=== PATIENT | male | born 1960 | race Caucasian/White ===

== ENCOUNTER → 2018-01-17 08:17 | Outpatient (CLI) | payer BC, SELFPAY ==
[2018-01-17 08:57] LABS: Basophils # 0.1 K/mm3 (0-0.2); Basophils % 0.9 % (0.1-2.0); Eosinophils # 0.4 K/mm3 (0.0-0.4); Eosinophils % 4.5 % (0.1-12.0); Hematocrit 51.8 % (42.0-52.0); Hemoglobin 16.8 g/dL (14.1-18.0); Lymphocytes # 2.3 K/mm3 (0.7-4.5); Lymphocytes % 29.6 K/mm3 (10-50); Mean Corpuscular HGB Conc 32.5 g/dL (31.8-35.4); Mean Corpuscular Hemoglobin 29.7 pg (27.0-31.2); Mean Corpuscular Volume 91.2 fl (80-94); Mean Platelet Volume 9.8 fl (7.4-10.4); Monocytes # 0.6 K/mm3 (0.1-1.0); Neutrophils # 4.4 K/mm3 (1.8-7.8); Neutrophils % 56.9 % (37.0-80.0); Platelet Count 216 K/mm3 (142-424); Red Blood Count 5.67 M/mm3 (4.60-6.20); Red Cell Distribution Width 13.4 % (11.5-17.5); White Blood Count 7.6 K/mm3 (4.8-10.8)
[2018-01-17 10:20] LABS: Alanine Aminotransferase 33 U/L (12-78); Albumin Level 4.4 gm/dL (3.4-5.0); Albumin/Globulin Ratio 1.4 (1.1-1.8); Alkaline Phosphatase 100 U/L (46-116); Anion Gap 12.1 mEq/L (5-15); Aspartate Amino Transferase 31 U/L (15-37); Bilirubin,Total 0.3 mg/dL (0.2-1.0); Blood Urea Nitrogen 11 mg/dL (7-18); Calcium 9.7 mg/dL (8.5-10.1); Carbon Dioxide 30 mmol/L (21.0-32.0); Chloride 106 mmol/L (98-107); Chol/HDL Ratio 6.4 (1-3.5); Cholesterol 192 mg/dL (140-200); Creatinine,Serum 0.69 mg/dL (0.70-1.30); Estimated Glomerular Filt Rate 118 ml/min (>60); Ferritin 20 ng/mL (8-388); GFR (African American) 143 ML/MIN (>60); Globulin 3.2 gm/dl (1.3-3.2); Glucose 127 mg/dL (74-106); HDL Cholesterol 30 mg/dL (27-67); LDL Cholesterol 118 mg/dL (0-130); Potassium 4.1 mmoL/L (3.5-5.1); Sodium 144 mmol/L (136-145); Total Protein,Serum 7.6 gm/dL (6.4-8.2); Triglycerides 222 mg/dL (30-200); VLDL Cholesterol 44 mg/dL (0-40)
== END ==
PROVIDERS: Visit Provider Internal Medicine Adolescent Medicine
DX: E83.110 Hereditary hemochromatosis (principal); E78.5 Hyperlipidemia, unspecified
CPT/HCPCS: 36415; 80053; 80061; 82728; 85025

== ENCOUNTER → 2018-08-05 08:19 | Outpatient (CLI) | payer BC, SELFPAY ==
[2018-08-05 11:03] LABS: Basophils # 0.1 K/mm3 (0-0.2); Basophils % 0.6 % (0.1-2.0); Eosinophils # 0.5 K/mm3 (0.0-0.4); Eosinophils % 5.4 % (0.1-12.0); Hematocrit 48.6 % (42.0-52.0); Hemoglobin 15.8 g/dL (14.1-18.0); Lymphocytes # 2.8 K/mm3 (0.7-4.5); Lymphocytes % 31.1 % (10-50); Mean Corpuscular HGB Conc 32.6 g/dL (31.8-35.4); Mean Corpuscular Hemoglobin 29.3 pg (27.0-31.2); Mean Platelet Volume 9.9 fl (7.4-10.4); Monocytes # 0.6 K/mm3 (0.1-1.0); Monocytes % 6.9 % (1.7-9.3); Neutrophils # 5.1 K/mm3 (1.8-7.8); Neutrophils % 56.1 % (37.0-80.0); Platelet Count 243 K/mm3 (142-424); White Blood Count 9.1 K/mm3 (4.8-10.8)
[2018-08-05 11:41] LABS: Alanine Aminotransferase 32 U/L (12-78); Albumin Level 4.3 gm/dL (3.4-5.0); Albumin/Globulin Ratio 1.4 (1.1-1.8); Alkaline Phosphatase 88 U/L (46-116); Anion Gap 13.4 mEq/L (5-15); Aspartate Amino Transferase 30 U/L (15-37); Bilirubin,Total 0.4 mg/dL (0.2-1.0); Blood Urea Nitrogen 10 mg/dL (7-18); Calcium 9.8 mg/dL (8.5-10.1); Carbon Dioxide 29 mmol/L (21.0-32.0); Chloride 104 mmol/L (98-107); Chol/HDL Ratio 4.9 (1-3.5); Cholesterol 173 mg/dL (140-200); Creatinine,Serum 0.74 mg/dL (0.70-1.30); Estimated Glomerular Filt Rate 108 ml/min (>60); Ferritin 18 ng/mL (8-388); Free Thyroxine Index 2.6 ug/dL (5.93-13.13); GFR (African American) 131 ML/MIN (>60); Globulin 3.1 gm/dl (1.3-3.2); Glucose 108 mg/dL (74-106); HDL Cholesterol 35 mg/dL (27-67); LDL Cholesterol 100 mg/dL (0-130); Potassium 4.4 mmoL/L (3.5-5.1); Sodium 142 mmol/L (136-145); T4 (Thyroxine) 7.5 ug/dl (4.7-13.3); Thyroid Stimulating Hormone 1.28 uIU/ml (0.358-3.740); Total Protein,Serum 7.4 gm/dL (6.4-8.2); Triglycerides 190 mg/dL (30-200); Triiodothryronine (T3) Uptake 34 % (31-39); VLDL Cholesterol 38 mg/dL (0-40)
[2018-08-05 11:44] LABS: Hemoglobin A1C 5.9 % (0.0-7.0)
[2018-08-06 12:15] LABS: Vitamin B12 998 pg/mL (232-1245)
== END ==
PROVIDERS: PCP Internal Medicine Adolescent Medicine; Visit Provider Internal Medicine Adolescent Medicine
DX: E78.5 Hyperlipidemia, unspecified (principal); G60.9 Hereditary and idiopathic neuropathy, unspecified; E83.110 Hereditary hemochromatosis
CPT/HCPCS: 36415; 80053; 80061; 82607; 82728; 83036; 84436; 84443; 84479; 85025

== ENCOUNTER → 2019-02-06 07:49 | Outpatient (CLI) | payer BC, SELFPAY ==
[2019-02-06 08:26] LABS: Basophils # 0.1 K/mm3 (0-0.2); Basophils % 0.8 % (0.1-2.0); Eosinophils # 0.4 K/mm3 (0.0-0.4); Eosinophils % 4.3 % (0.1-12.0); Hematocrit 46.7 % (42.0-52.0); Hemoglobin 15.8 g/dL (14.1-18.0); Lymphocytes # 2.7 K/mm3 (0.7-4.5); Lymphocytes % 32.8 % (10-50); Mean Corpuscular HGB Conc 33.8 g/dL (31.8-35.4); Mean Corpuscular Hemoglobin 30.9 pg (27.0-31.2); Mean Corpuscular Volume 91.4 fl (80-94); Mean Platelet Volume 8.9 fl (7.4-10.4); Monocytes # 0.5 K/mm3 (0.1-1.0); Monocytes % 6.6 % (1.7-9.3); Neutrophils # 4.5 K/mm3 (1.8-7.8); Neutrophils % 55.4 % (37.0-80.0); Platelet Count 206 K/mm3 (142-424); Red Blood Count 5.11 M/mm3 (4.60-6.20); Red Cell Distribution Width 14.4 % (11.5-17.5); White Blood Count 8.1 K/mm3 (4.8-10.8)
[2019-02-06 09:25] LABS: Hemoglobin A1C 5.9 % (0.0-7.0)
[2019-02-06 09:29] LABS: Alanine Aminotransferase 31 U/L (12-78); Albumin/Globulin Ratio 1.3 (1.1-1.8); Alkaline Phosphatase 79 U/L (46-116); Anion Gap 12.1 mEq/L (5-15); Aspartate Amino Transferase 25 U/L (15-37); Bilirubin,Total 0.4 mg/dL (0.2-1.0); Blood Urea Nitrogen 10 mg/dL (7-18); Calcium 9.3 mg/dL (8.5-10.1); Carbon Dioxide 30 mmol/L (21.0-32.0); Chloride 107 mmol/L (98-107); Chol/HDL Ratio 5.5 (1-3.5); Cholesterol 165 mg/dL (140-200); Creatinine,Serum 0.72 mg/dL (0.70-1.30); Estimated Glomerular Filt Rate 112 ml/min (>60); Ferritin 14 ng/mL (8-388); Free Thyroxine Index 2.2 ug/dL (5.93-13.13); GFR (African American) 135 ML/MIN (>60); Globulin 3.2 gm/dl (1.3-3.2); Glucose 105 mg/dL (74-106); HDL Cholesterol 30 mg/dL (27-67); LDL Cholesterol 110 mg/dL (0-130); Potassium 4.1 mmoL/L (3.5-5.1); Sodium 145 mmol/L (136-145); T4 (Thyroxine) 6.6 ug/dl (4.7-13.3); Thyroid Stimulating Hormone 1.65 uIU/ml (0.358-3.740); Total Protein,Serum 7.2 gm/dL (6.4-8.2); Triglycerides 125 mg/dL (30-200); Triiodothryronine (T3) Uptake 34 % (31-39); VLDL Cholesterol 25 mg/dL (0-40)
[2019-02-07 14:31] LABS: Vitamin B12 1530 pg/mL (232-1245)
== END ==
PROVIDERS: Visit Provider Internal Medicine Adolescent Medicine
DX: I10 Essential (primary) hypertension (principal); E83.110 Hereditary hemochromatosis; G60.9 Hereditary and idiopathic neuropathy, unspecified
CPT/HCPCS: 36415; 80053; 80061; 82607; 82728; 83036; 84436; 84443; 84479; 85025

== ENCOUNTER → 2019-08-14 07:40 | Outpatient (CLI) | payer BC, SELFPAY ==
[2019-08-14 08:05] LABS: Basophils # 0.1 K/mm3 (0-0.2); Basophils % 0.8 % (0.1-2.0); Eosinophils # 0.3 K/mm3 (0.0-0.4); Eosinophils % 3.8 % (0.1-12.0); Hematocrit 49.6 % (42.0-52.0); Hemoglobin 16.1 g/dL (14.1-18.0); Lymphocytes # 2.5 K/mm3 (0.7-4.5); Lymphocytes % 29.7 % (10-50); Mean Corpuscular HGB Conc 32.5 g/dL (31.8-35.4); Mean Corpuscular Hemoglobin 31.1 pg (27.0-31.2); Mean Corpuscular Volume 95.8 fl (80-94); Mean Platelet Volume 9.6 fl (7.4-10.4); Monocytes # 0.5 K/mm3 (0.1-1.0); Monocytes % 6.4 % (1.7-9.3); Neutrophils % 59.3 % (37.0-80.0); Platelet Count 202 K/mm3 (142-424); Red Blood Count 5.18 M/mm3 (4.60-6.20); Red Cell Distribution Width 14.1 % (11.5-17.5); White Blood Count 8.4 K/mm3 (4.8-10.8)
[2019-08-14 10:26] LABS: Alanine Aminotransferase 27 U/L (12-78); Albumin/Globulin Ratio 1.4 (1.1-1.8); Alkaline Phosphatase 73 U/L (46-116); Anion Gap 12.7 mEq/L (5-15); Aspartate Amino Transferase 24 U/L (15-37); Bilirubin,Total 0.4 mg/dL (0.2-1.0); Blood Urea Nitrogen 16 mg/dL (7-18); Calcium 9.2 mg/dL (8.5-10.1); Carbon Dioxide 28 mmol/L (21.0-32.0); Chloride 106 mmol/L (98-107); Chol/HDL Ratio 7.2 (1-3.5); Cholesterol 236 mg/dL (140-200); Creatinine,Serum 0.75 mg/dL (0.70-1.30); Estimated Glomerular Filt Rate 106 ml/min (>60); Ferritin 21 ng/mL (8-388); GFR (African American) 129 ML/MIN (>60); Globulin 2.9 gm/dl (1.3-3.2); Glucose 106 mg/dL (74-106); HDL Cholesterol 33 mg/dL (27-67); LDL Cholesterol 164 mg/dL (0-130); Potassium 3.7 mmoL/L (3.5-5.1); Sodium 143 mmol/L (136-145); Total Protein,Serum 6.9 gm/dL (6.4-8.2); Triglycerides 195 mg/dL (30-200); VLDL Cholesterol 39 mg/dL (0-40)
[2019-08-14 10:36] LABS: Hemoglobin A1C 5.8 % (0.0-7.0)
[2019-08-15 15:01] LABS: Vitamin B12 1334 pg/mL (232-1245)
== END ==
PROVIDERS: Visit Provider Internal Medicine Adolescent Medicine
DX: E78.5 Hyperlipidemia, unspecified (principal); E83.110 Hereditary hemochromatosis; G60.9 Hereditary and idiopathic neuropathy, unspecified
CPT/HCPCS: 36415; 80053; 80061; 82607; 82652; 82728; 83036; 85025

== ENCOUNTER → 2020-02-07 07:56 | Outpatient (CLI) | payer BC, SELFPAY ==
[2020-02-07 08:16] LABS: Basophils # 0.1 K/mm3 (0-0.2); Basophils % 0.7 % (0.1-2.0); Eosinophils # 0.3 K/mm3 (0.0-0.4); Eosinophils % 4.3 % (0.1-12.0); Hematocrit 48.9 % (42.0-52.0); Hemoglobin 16.3 g/dL (14.1-18.0); Lymphocytes # 2.1 K/mm3 (0.7-4.5); Lymphocytes % 27.4 % (10-50); Mean Corpuscular HGB Conc 33.4 g/dL (31.8-35.4); Mean Corpuscular Hemoglobin 30.7 pg (27.0-31.2); Mean Corpuscular Volume 91.9 fl (80-94); Mean Platelet Volume 9.2 fl (7.4-10.4); Monocytes # 0.6 K/mm3 (0.1-1.0); Monocytes % 8.1 % (1.7-9.3); Neutrophils # 4.7 K/mm3 (1.8-7.8); Neutrophils % 59.7 % (37.0-80.0); Platelet Count 175 K/mm3 (142-424); Red Blood Count 5.32 M/mm3 (4.60-6.20); Red Cell Distribution Width 14.3 % (11.5-17.5); White Blood Count 7.8 K/mm3 (4.8-10.8)
[2020-02-07 09:05] LABS: Chloride 103 mmol/L (98-107); Sodium 139 mmol/L (136-145)
[2020-02-07 09:08] LABS: Alanine Aminotransferase 27 U/L (12-78); Albumin Level 4.3 g/dl (3.5-5.0); Alkaline Phosphatase 62 U/L (38-126); Aspartate Amino Transferase 36 U/L (17-59); Bilirubin,Total 0.5 mg/dl (0.2-1.3); Blood Urea Nitrogen 13 mg/dl (9-20); Carbon Dioxide 30 mmol/L (22.0-30.0); Estimated Glomerular Filt Rate 115 ml/min (>60); GFR (African American) 139 ML/MIN (>60)
[2020-02-07 09:09] LABS: Albumin/Globulin Ratio 1.6 (1.1-1.8); Calcium 10.1 mg/dl (8.4-10.2); Chol/HDL Ratio 5.9 (1-3.5); Cholesterol 211 mg/dl (140-200); Globulin 2.7 g/dL (1.3-3.2); Glucose 121 mg/dl (74-100); HDL Cholesterol 36 mg/dl (40-60); Triglycerides 211 mg/dl (30-150); VLDL Cholesterol 42 mg/dL (0-40)
[2020-02-07 09:20] LABS: Direct LDL Cholesterol 159.52 mg/dL (100-129)
[2020-02-07 09:44] LABS: Ferritin 14.8 ng/ml (17.9-464)
[2020-02-07 10:26] LABS: Hemoglobin A1C 5.6 % (4.0-6.0)
== END ==
PROVIDERS: Visit Provider Internal Medicine Adolescent Medicine
DX: E78.5 Hyperlipidemia, unspecified (principal); E83.110 Hereditary hemochromatosis; I10 Essential (primary) hypertension; G60.9 Hereditary and idiopathic neuropathy, unspecified
CPT/HCPCS: 36415; 80053; 80061; 82728; 83036; 85025

== ENCOUNTER → 2020-03-12 10:30 | Outpatient (POV) | payer BC, SELFPAY | PROVIDERS: PCP Internal Medicine Adolescent Medicine; Visit Provider Physician Assistant | DX: Z00.00 Encounter for general adult medical examination without abnormal findings (principal) ==

== ENCOUNTER 2020-07-14 09:16 | Emergency (ER) | payer BC, SELFPAY ==
[2020-07-14 09:29] VITALS: BP 149/96; PULSE 86; RESP 19; TEMP 36.6; O2SAT 99; BMI 29.0
--- NOTE | 2020-07-14 09:43 | HMH.EDUTC ---
[facility] [place] Disposition Clinical Impression: Bronchitis Sinusitis Qualifiers: Sinusitis location: unspecified location Chronicity: unspecified Qualified Code(s): J32.9 - Chronic sinusitis, unspecified Disposition: Home, Self-Care Condition on Discharge: Good Instructions: Sinusitis, Sinus Headache, DI for Sinusitis, Acute Bronchitis Additional Instructions: ? Start antibiotic today. Be sure to complete entire prescription even if feeling better ? Monitor temp. Tylenol every 4 hours as needed and / or ibuprofen every 6 hours as needed ( As long as your primary care physician has told you that it ok to take both. For fever/aches/pains ER if no less than 101 despite Tylenol or Motrin ? Humidifier/vaporizer or hot steamy shower ? Inhaler every 4-6 hours as needed like we discussed. If unsure how to use it, ask pharmacist to demonstrate how. Should help open airways and improve cough, wheezing, and shortness of breath ? Start steroid today. Helps with inflammation therefore, cough and wheezing. Follow directions on the package. Reviewed side effects. Patient reports taking them before. Follow up IMMEDIATELY for new or worsening of symptoms OR no noticeable improvement over the next 48-72 hours. 911 immediately for any life threatening symptoms such as chest pain or difficulty breathing You was tested for today for COVID19 your test result should be tomorrow or Wednesday, you may call back tomorrow or Wednesday to see if your test results are back and the result You was given a handout with instructions for Self Quarantine and Self isolation for while you wait on test results and what to do if they are positive Prescriptions: methylPREDNISolone [Medrol 4mg tab] 4 mg PO DIRECTED #21 tab Transmission Status: Pending to [id number] Azithromycin [Z-Orion 250mg Tab] 250 mg PO DIRECTED #6 tab Transmission Status: Pending to [id number] Referrals: Fabián Burgess MD [Primary Care Provider] - As needed Forms: Work/School Release Time of Disposition: 09:56 Medical Decision Making - Usama Inquiry Pt receiving controlled substance: No Usama was queried for this patient: No Vital Signs: 07/14/20 09:29 Temperature 97.9 F Temperature Source Oral Pulse Rate [Radial] 86 Respiratory Rate 19 Blood Pressure [Right Arm] 149/96 H Blood Pressure Mean [Right Arm] 113 Blood Pressure Source [Right Arm] Automatic Cuff Blood Pressure Position [Right Arm] Sitting 02 Sat by Pulse Oximetry 99 Oxygen Delivery Method Room Air Orders (Tests/Meds): ORDERS Category Date Time Status Covid-19 Nasal PCR Sendout [facility] 07/14/20 09:40 Received Medical Decision Narrative: Patient states that he has taken zpack and steriods before without complications or reactions [facility] HPI - General Stated complaint: cold work exposed Time Seen by Provider: 07/14/20 09:43 Mode of Arrival: Ambulatory Source of Information: Patient Limitations: No Limitations Description of Symptoms (Recalled from Triage Doc. by RN): cough, sneezing, congestion since yesterday HEENT Symptoms (Recalled from RN notes): Yes Resp Symptoms (Recalled from RN notes): No Skin Symptoms (Recalled from RN notes): No MS Symptoms (Recalled from RN notes): No Functional Status (Recalled from RN notes): wnl - History of Present Illness Provider Complaint: Patient states that he has been having sinus issues for over a week State that yesterday it felt like it was trying to move into his chest States that he started having drainage in the back of his throat throat irritation, coughing and sneezing States that he is an everyday smoker and gets bronchitis around this time every year and has to get antibiotics States that he was going to see his PCP last week before it got bad but couldnt get in - Related Data Home Medications Medication Instructions Recorded Confirmed albuterol sulfate 90 mcg/actuation INHALATION 30 Days #8 g 06/20/18 aerosol inhaler alprazolam
[2020-07-14 10:08] VITALS: BP 149/96; PULSE 86; RESP 19; TEMP 36.6; O2SAT 99
[2020-07-15 16:35] LABS: Covid-19 Nasal PCR Sendout UK Not Detected
== END 2020-07-14 10:09 | disposition home or self-care (01) ==
PROVIDERS: Emergency Provider Nurse Practitioner; PCP Internal Medicine Adolescent Medicine
DX: Z20.828 Contact with and (suspected) exposure to other viral communicable diseases (principal); J20.9 Acute bronchitis, unspecified; J32.9 Chronic sinusitis, unspecified; F17.210 Nicotine dependence, cigarettes, uncomplicated
CPT/HCPCS: 99201; U0003

== ENCOUNTER → 2020-10-16 13:03 | Outpatient (POV) | payer BC, SELFPAY | DX: Z00.00 Encounter for general adult medical examination without abnormal findings (principal) ==

== ENCOUNTER → 2020-12-12 07:56 | Outpatient (CLI) | payer BC, SELFPAY ==
[2020-12-12 09:01] LABS: Basophils # 0.1 K/mm3 (0-0.2); Basophils % 0.8 % (0.1-2.0); Eosinophils # 0.4 K/mm3 (0.0-0.4); Eosinophils % 4.7 % (0.1-12.0); Hematocrit 50.1 % (42.0-52.0); Hemoglobin 17.1 g/dL (14.1-18.0); Lymphocytes # 2.9 K/mm3 (0.7-4.5); Lymphocytes % 29.8 % (10-50); Mean Corpuscular HGB Conc 34.2 g/dL (31.8-35.4); Mean Corpuscular Hemoglobin 31.6 pg (27.0-31.2); Mean Corpuscular Volume 92.4 fl (80-94); Mean Platelet Volume 9.8 fl (7.4-10.4); Monocytes # 0.6 K/mm3 (0.1-1.0); Neutrophils # 5.6 K/mm3 (1.8-7.8); Neutrophils % 58.8 % (37.0-80.0); Platelet Count 168 K/mm3 (142-424); Red Blood Count 5.42 M/mm3 (4.60-6.20); Red Cell Distribution Width 13.4 % (11.5-17.5); White Blood Count 9.6 K/mm3 (4.8-10.8)
[2020-12-12 09:16] LABS: Alanine Aminotransferase 35 U/L (12-78); Albumin Level 4.5 g/dl (3.5-5.0); Albumin/Globulin Ratio 1.8 (1.1-1.8); Alkaline Phosphatase 94 U/L (38-126); Aspartate Amino Transferase 40 U/L (17-59); Bilirubin,Total 0.8 mg/dl (0.2-1.3); Blood Urea Nitrogen 14 mg/dl (9-20); Calcium 10.2 mg/dl (8.4-10.2); Carbon Dioxide 28 mmol/L (22.0-30.0); Chloride 105 mmol/L (98-107); Chol/HDL Ratio 5.9 (1-3.5); Cholesterol 171 mg/dl (140-200); Estimated Glomerular Filt Rate 137 ml/min (>60); GFR (African American) 166 ML/MIN (>60); Globulin 2.5 g/dL (1.3-3.2); Glucose 127 mg/dl (74-100); HDL Cholesterol 29 mg/dl (40-60); Magnesium 1.9 mg/dl (1.6-2.3); Sodium 140 mmol/L (136-145); Triglycerides 252 mg/dl (30-150); VLDL Cholesterol 50 mg/dL (0-40)
[2020-12-12 09:19] LABS: Hemoglobin A1C 6.4 % (4.0-6.0)
[2020-12-12 09:27] LABS: Direct LDL Cholesterol 96.19 mg/dL (100-129)
[2020-12-12 09:46] LABS: Prostate Specific Ag Screen 1.8 ng/ml (0.0-4.0); Thyroid Stimulating Hormone 1.19 uIU/mL (0.465-4.68)
[2020-12-12 09:50] LABS: Ferritin 34.1 ng/ml (17.9-464)
[2020-12-12 10:04] LABS: Vitamin B12 726 pg/mL (239-931)
[2020-12-12 12:19] LABS: Erythrocyte Sedimentation Rate 5 mm/hr (0-20)
== END ==
PROVIDERS: Visit Provider Internal Medicine Adolescent Medicine
DX: M94.1 Relapsing polychondritis (principal); G60.9 Hereditary and idiopathic neuropathy, unspecified; G25.81 Restless legs syndrome; E83.110 Hereditary hemochromatosis; E78.5 Hyperlipidemia, unspecified
CPT/HCPCS: 36415; 80053; 80061; 82607; 82728; 83036; 83735; 84443; 85025; 85651; G0103

== ENCOUNTER 2021-01-31 16:08 | Emergency (ER) | payer BC, SELFPAY ==
[2021-01-31 16:40] VITALS: BP 140/74; PULSE 64; RESP 19; TEMP 36.6; O2SAT 97; BMI 29.0
--- NOTE | 2021-01-31 16:59 | HMH.EDUTC ---
[facility] [place] Disposition Clinical Impression: Pre-op testing Disposition: Home, Self-Care Condition on Discharge: Good Instructions: Preventing the Spread of Coronavirus Discharge Instructions Referrals: Fabián Burgess MD [Primary Care Provider] - Time of Disposition: 17:00 Medical Decision Making - Usama Inquiry Pt receiving controlled substance: No Vital Signs: 01/31/21 16:40 Temperature 97.9 F Temperature Source Oral Pulse Rate [Right Brachial] 64 Respiratory Rate 19 Blood Pressure [Right Arm] 140/74 Blood Pressure Mean [Right Arm] 96 Blood Pressure Source [Right Arm] Automatic Cuff Blood Pressure Position [Right Arm] Sitting 02 Sat by Pulse Oximetry 97 Oxygen Delivery Method Room Air Orders (Tests/Meds): ORDERS Category Date Time Status Covid-19 Nasal PCR ([facility]) Routine Lab 01/31/21 16:45 Received [facility] [place] HPI - General Stated complaint: Covid Swab for procedure 02/03 Time Seen by Provider: 01/31/21 16:59 Mode of Arrival: Ambulatory Source of Information: Patient Limitations: No Limitations Description of Symptoms (Recalled from Triage Doc. by RN): PATIENT NEEDING COVID TEST FOR PROCEDURE HEENT Symptoms (Recalled from RN notes): No Resp Symptoms (Recalled from RN notes): No Skin Symptoms (Recalled from RN notes): No MS Symptoms (Recalled from RN notes): No Functional Status (Recalled from RN notes): WNL - History of Present Illness Provider Complaint: Patient needs COVID19 swab before procedure on Wednesday. No symptoms. Relieving factors: none Exacerbating factors: none Associated symptoms: denies other symptoms Treatments prior to arrival: none - Related Data Home Medications Medication Instructions Recorded Confirmed albuterol sulfate 90 mcg/actuation 90 mcg INHALATION DAILY 30 Days #8 06/20/18 01/28/21 aerosol inhaler g alprazolam 0.5 mg tablet 0.5 mg PO DAILY 30 Days #60 tab 06/20/18 01/28/21 bisoprolol 5 5 mg PO DAILY 30 Days #30 tab 06/20/18 01/28/21 mg-hydrochlorothiazide 6.25 mg tablet dorzolamide 22.3 mg-timolol 6.8 22.3 ml OPHTHALMIC DAILY 30 Days 06/20/18 01/28/21 mg/mL eye drops #10 ml gabapentin 300 mg capsule 300 mg PO DAILY 30 Days #90 cap 06/20/18 01/28/21 latanoprost 0.005 % eye drops 0.005 % OPHTHALMIC DAILY 30 Days 06/20/18 01/28/21 #2 ml simvastatin 40 mg tablet 40 mg PO DAILY 30 Days #30 tab 06/20/18 01/28/21 temazepam 30 mg capsule 30 mg PO DAILY 30 Days #30 cap 06/20/18 01/28/21 Allergies Allergy/AdvReac Type Severity Reaction Status Date / Time Penicillins [PENICILLINS] Allergy Unknown BOTTOM FT Verified 06/20/18 13:14 SWELL - Worker's Comp Is this a Worker's Comp case?: No [facility] History - Hepatitis A Screen Drug use history?: No High risk sexual behaviors?: No History of sexually transmitted infection?: No Currently employed?: No Childcare worker?: No Do you have indoor plumbing?: Yes Do you have electricity?: Yes Attestation statement:: This patient has been screened for Hepatitis A risk factors. I have reviewed the patient's past medical history: Yes Medical History: Reports:: Anxiety, Depression, Hyperlipidemia, Hypertension Denies:: Cancer, Diabetes Mellitus Type 1, Diabetes Mellitus Type 2, Internal Pacemaker, MRSA Other Surgeries: Yes: Other. No: Pacemaker Amputation: No Comment: josué cataract - Social History Smoking Status: Current every day smoker Tobacco Type: cigarettes # Packs/Day (cigarettes): 1 Alcohol Intake: never Substance Use Type: denies use Occupational Status: employed Housing: house Household Members: spouse - Psychiatric History Pschychiatric History:: Reports:: Anxiety, Depression Family Hx:: No significant family history ROS Obtained: Yes All systems reviewed & no additional complaints Physical Exam - General General appearance: alert, in no apparent distress - Head Head exam: normocephalic - Eye Eye exam: Present: PERRL - Chest Chest inspection: Present: symmetric chest
[2021-01-31 17:02] VITALS: BP 140/74; PULSE 64; RESP 16; TEMP 36.6; O2SAT 97
== END 2021-01-31 17:06 | disposition home or self-care (01) ==
PROVIDERS: Emergency Provider Physician Assistant; PCP Internal Medicine Adolescent Medicine
DX: Z11.52 Encounter for screening for COVID-19 (principal)
CPT/HCPCS: 99202; G0463; U0003

== ENCOUNTER 2021-02-03 08:16 | Day surgery (SDC) | payer BC, SELFPAY ==
[2021-01-28 14:03] VITALS: BMI 29.0
[2021-02-03] VITALS (7 sets, daily range): BP systolic 110–126; BP diastolic 66–87; PULSE 50–63; RESP 18–20; TEMP 36.4; O2SAT 93–98
--- NOTE | 2021-02-03 09:33 | P.PN_ITS ---
[facility] Anesthesia Checklist - Patient Identification Patient Identification: Arm Band - Structural Data Admitted From: Home Planned Operative Procedure/s: Colonoscopy Consent for Planned Operative Procedure(s) Verified: Yes - NPO Status Verified Time NPO: 00:00 - Airway Assessment C-Spine Mobility Assessed: Yes TMJ Mobility Assessed: Yes Dentition: Good Dentition - Neurological Assessment Level of Consciousness: Awake, Alert Hx Seizures: No Numbness or tingling in extremities: No - Anesthesia Plan Anesthesia Risk discussed: Yes Anesthesia Plan: Verified ASA Class: III Anesthesia Type: MAC [facility] History I have reviewed the patient's past medical history: Yes Medical History: Reports:: Anxiety, Depression, Hyperlipidemia, Hypertension Denies:: Cancer, Diabetes Mellitus Type 1, Diabetes Mellitus Type 2, Internal Pacemaker, MRSA, Seizures *Have you ever received a pneumonia vaccine?: Yes *Have you received a flu vaccine this season?: Yes Anesthesia experience/problems:: None Laterality Cases: Bilateral: Cataract Other Surgeries: Yes: Other. No: Pacemaker Amputation: No - *Social History Smoking Status: Current every day smoker Tobacco Type: cigarettes # Packs/Day (cigarettes): 1 Alcohol Intake: never Substance Use Type: denies use *Occupational Status:: employed Housing: house Household Members: spouse *Travel in the last 8 weeks: None - Psychiatric History Pschychiatric History:: Reports:: Anxiety, Depression Family Hx:: No significant family history
--- NOTE | 2021-02-03 10:02 | HMH.PROC ---
[facility] [place] Procedure Note Procedure Note:: Colonoscopy Procedure Report: Colonoscopy with cold snare polypectomy Endoscopist: Milton Marshall II, MD Referring physician: Fabián Burgess M.D. Date of Procedure: February 03, 2021 Equipment: Olympus 190 variable stiffness pediatric colonoscope Sedation: MAC sedation Indication: Mr. Contreras is a 60-year-old gentleman who is here for follow-up screening/surveillance colonoscopy secondary to a personal history of colon polyps. The patient did have a colonoscopy and December 2015 (Tariq Acosta MD) and had 6 colon polyps (small tubular adenomas x3, small serrated adenoma x1 and hyperplastic polyps x2) removed. The patient does state that his paternal grandfather had colon cancer around the age of 90. He reports no abdominal pain, weight loss, change in his bowel habits or rectal bleeding. Procedure: Prior to the procedure, a history and physical exam was performed, and patient's medications and allergies were reviewed. The risks, benefits and alternatives of the sedation and procedure were discussed with the patient. All questions were answered and informed consent was obtained. The patient was brought to the procedure room. Patient identification and proposed procedure were verified by the physician and the nurse. The patient was placed in a left lateral decubitus position and the scope was passed under direct vision. Throughout the procedure, the patient's blood pressure, pulse, and oxygen saturations were monitored continuously. The colonoscopy was accomplished without difficulty. The patient tolerated the procedure well. Findings: On digital rectal examination there was normal rectal tone. There were no external hemorrhoids. The prostate was 2+, smooth, soft, symmetric without nodules. The colonoscope was introduced through the anal canal to the rectum and advanced to the cecum. The ileocecal valve and appendiceal orifice were identified. The scope was advanced a short distance into the ileum which appeared grossly normal. The scope was then withdrawn into the colon. The cecum, ascending and transverse colon and mucosa were grossly normal. There were 5 colon polyps (transverse x4 (3, 4, 4 and 5 mm) and sigmoid x1 (4 mm)) which were all removed via cold snare polypectomy. There were scattered diverticuli throughout the descending and sigmoid colon (LEFT colon). The rectum itself was normal. Upon retroflexion within the rectum there were grade 2 internal hemorrhoids. The preparation was excellent throughout with [place] Preparation Score of 9. The cecal time was 12 minutes. Impression: 1. Diminutive colonic polyps x5 2. Left-sided diverticulosis 3. Grade 2 internal hemorrhoids Plan: I will follow up the polyp pathology and recommend repeat colonoscopy again in 5 years based upon the polyp histology and prior adenomatous polyps. I would encourage bulking fiber supplementation on a long-term daily maintenance basis.
== END 2021-02-03 10:53 | disposition home or self-care (01) ==
LOC: OUTP 08:18
PROVIDERS: PCP Internal Medicine Adolescent Medicine; Visit Provider Internal Medicine Gastroenterology
PROC: 0DJD8ZZ Inspection of Lower Intestinal Tract, Via Natural or Artificial Opening Endoscopic (ICD-10-PCS; CPT 45378; principal; 2021-02-03 09:30)
DX: Z12.11 Encounter for screening for malignant neoplasm of colon (principal); Z86.010 Personal history of colon polyps; K63.5 Polyp of colon; K57.30 Diverticulosis of large intestine without perforation or abscess without bleeding; K64.1 Second degree hemorrhoids; F41.9 Anxiety disorder, unspecified; F32.9 Major depressive disorder, single episode, unspecified; E87.5 Hyperkalemia; I10 Essential (primary) hypertension; Z72.0 Tobacco use; Z79.51 Long term (current) use of inhaled steroids; Z79.899 Other long term (current) drug therapy
CPT/HCPCS: 45385

== ENCOUNTER → 2021-07-21 08:00 | Outpatient (CLI) | payer BC, SELFPAY ==
[2021-07-21 08:18] LABS: Basophils # 0.2 K/mm3 (0-0.2); Basophils % 2.3 % (0.1-2.0); Eosinophils # 0.4 K/mm3 (0.0-0.4); Eosinophils % 4.5 % (0.1-12.0); Hematocrit 49.5 % (42.0-52.0); Hemoglobin 16.6 g/dL (14.1-18.0); Lymphocytes # 2.6 K/mm3 (0.7-4.5); Lymphocytes % 30.5 % (10-50); Mean Corpuscular HGB Conc 33.6 g/dL (31.8-35.4); Mean Corpuscular Hemoglobin 31.9 pg (27.0-31.2); Mean Corpuscular Volume 94.9 fl (80-94); Mean Platelet Volume 9.7 fl (7.4-10.4); Monocytes # 0.6 K/mm3 (0.1-1.0); Monocytes % 6.6 % (1.7-9.3); Neutrophils # 4.7 K/mm3 (1.8-7.8); Platelet Count 191 K/mm3 (142-424); Red Blood Count 5.21 M/mm3 (4.60-6.20); Red Cell Distribution Width 13.6 % (11.5-17.5); White Blood Count 8.5 K/mm3 (4.8-10.8)
[2021-07-21 08:27] LABS: Hemoglobin A1C 6.1 % (4.0-6.0)
[2021-07-21 08:42] LABS: Chloride 106 mmol/L (98-107); Potassium 3.9 mmoL/L (3.5-5.1); Sodium 141 mmol/L (136-145)
[2021-07-21 08:45] LABS: Alanine Aminotransferase 32 U/L (12-78); Albumin Level 4.1 g/dl (3.5-5.0); Albumin/Globulin Ratio 1.7 (1.1-1.8); Alkaline Phosphatase 86 U/L (38-126); Anion Gap 11.9 mEq/L (5-15); Aspartate Amino Transferase 38 U/L (17-59); Bilirubin,Total 0.4 mg/dl (0.2-1.3); Blood Urea Nitrogen 12 mg/dl (9-20); Carbon Dioxide 27 mmol/L (22.0-30.0); Cholesterol 160 mg/dl (140-200); Estimated Glomerular Filt Rate 137 ml/min (>60); GFR (African American) 166 ML/MIN (>60); Globulin 2.4 g/dL (1.3-3.2); Total Protein,Serum 6.5 g/dl (6.3-8.2); Triglycerides 206 mg/dl (30-150); VLDL Cholesterol 41 mg/dL (0-40)
[2021-07-21 08:46] LABS: Calcium 9.7 mg/dl (8.4-10.2); Glucose 130 mg/dl (74-100); HDL Cholesterol 32 mg/dl (40-60)
[2021-07-21 08:56] LABS: Direct LDL Cholesterol 85.08 mg/dL (100-129)
[2021-07-21 09:19] LABS: Ferritin 14.8 ng/ml (17.9-464)
[2021-07-21 09:22] LABS: 25-OH Vitamin D, Total 54.7 ng/mL (30-100)
[2021-07-21 12:10] LABS: Vitamin B12 867 pg/mL (239-931)
== END ==
PROVIDERS: Visit Provider Internal Medicine Adolescent Medicine
DX: E83.110 Hereditary hemochromatosis (principal); E78.5 Hyperlipidemia, unspecified; M94.1 Relapsing polychondritis; G60.9 Hereditary and idiopathic neuropathy, unspecified
CPT/HCPCS: 36415; 80053; 80061; 82306; 82607; 82728; 83036; 85025

== ENCOUNTER → 2022-01-12 09:01 | Outpatient (CLI) | payer BC, SELFPAY ==
[2022-01-12 09:49] LABS: Basophils # 0.1 K/mm3 (0-0.2); Basophils % 1.7 % (0.1-2.0); Eosinophils # 0.4 K/mm3 (0.0-0.4); Eosinophils % 4.8 % (0.1-12.0); Hematocrit 49.3 % (42.0-52.0); Hemoglobin 16.2 g/dL (14.1-18.0); Lymphocytes # 2.5 K/mm3 (0.7-4.5); Lymphocytes % 29.6 % (10-50); Mean Corpuscular HGB Conc 32.9 g/dL (31.8-35.4); Mean Corpuscular Hemoglobin 29.6 pg (27.0-31.2); Mean Corpuscular Volume 90.2 fl (80-94); Mean Platelet Volume 10.4 fl (7.4-10.4); Monocytes # 0.5 K/mm3 (0.1-1.0); Monocytes % 5.9 % (1.7-9.3); Neutrophils # 4.9 K/mm3 (1.8-7.8); Platelet Count 189 K/mm3 (142-424); Red Blood Count 5.47 M/mm3 (4.60-6.20); Red Cell Distribution Width 14.8 % (11.5-17.5); White Blood Count 8.4 K/mm3 (4.8-10.8)
[2022-01-12 11:58] LABS: Chloride 104 mmol/L (98-107); Potassium 3.8 mmoL/L (3.5-5.1); Sodium 141 mmol/L (136-145)
[2022-01-12 12:01] LABS: Alanine Aminotransferase 34 U/L (12-78); Albumin Level 4.3 g/dl (3.5-5.0); Albumin/Globulin Ratio 1.7 (1.1-1.8); Alkaline Phosphatase 80 U/L (38-126); Anion Gap 10.8 mEq/L (5-15); Aspartate Amino Transferase 40 U/L (17-59); Bilirubin,Total 0.5 mg/dl (0.2-1.3); Blood Urea Nitrogen 11 mg/dl (9-20); Calcium 9.2 mg/dl (8.4-10.2); Carbon Dioxide 30 mmol/L (22.0-30.0); Cholesterol 162 mg/dl (140-200); Estimated Glomerular Filt Rate 114 ml/min (>60); GFR (African American) 138 ML/MIN (>60); Globulin 2.5 g/dL (1.3-3.2); Glucose 128 mg/dl (74-100); Total Protein,Serum 6.8 g/dl (6.3-8.2); Triglycerides 200 mg/dl (30-150); VLDL Cholesterol 40 mg/dL (0-40)
[2022-01-12 12:02] LABS: Chol/HDL Ratio 5.1 (1-3.5); HDL Cholesterol 32 mg/dl (40-60)
[2022-01-12 12:12] LABS: Direct LDL Cholesterol 95.03 mg/dL (100-129)
[2022-01-12 12:28] LABS: Thyroid Stimulating Hormone 2.03 uIU/mL (0.465-4.68)
[2022-01-13 08:37] LABS: Testosterone,Total 408 ng/dL (264-916)
[2022-01-13 13:21] LABS: Hemoglobin A1C 6.6 % (4.0-6.0)
== END ==
PROVIDERS: Internal Medicine Adolescent Medicine; Visit Provider Nurse Practitioner Family
DX: R53.81 Other malaise (principal); I10 Essential (primary) hypertension; E78.5 Hyperlipidemia, unspecified
CPT/HCPCS: 36415; 80053; 80061; 83036; 84403; 84443; 85025

== ENCOUNTER → 2022-01-20 07:09 | Outpatient (CLI) | payer BC, SELFPAY ==
--- NOTE | 2022-01-20 07:11 | CT_ITS ---
FINAL REPORT CLINICAL HISTORY: smoker, 1 ppd x 40 years. no symptoms FINDINGS: Low-Dose Chest CT CTDI vol (mGy): 2.9 DLP (mGy-cm): 105.25 Axial images were obtained from the lung apex to the mid abdomen by computed tomography. Low-dose protocol was utilized. FINDINGS: CHEST: There is no axillary adenopathy. There are calcified right hilar lymph nodes. There is dense coronary artery calcification. The heart is proper size. There is no pericardial or pleural effusion. Limited images of the upper abdomen are unremarkable. Lung window images demonstrate a density in the right upper lobe measuring 3 mm best seen on image 26 series 3. IMPRESSION: S-modifier: Dense coronary artery calcification. Lung RADS category 2S. Recommend 12 month follow-up low-dose chest CT. Reviewed, Interpreted and Dictated by Gaudencio Petersen MD Transcribed by Anjel Barr Authenticated by Gaudencio Petersen MD on 01/20/2022 08:28:13 AM [facility]
== END ==
PROVIDERS: PCP Internal Medicine Adolescent Medicine; Visit Provider Nurse Practitioner Family
DX: Z87.891 Personal history of nicotine dependence (principal); Z12.2 Encounter for screening for malignant neoplasm of respiratory organs
CPT/HCPCS: 71271

== ENCOUNTER → 2023-01-26 06:38 | Outpatient (CLI) | payer BC, SELFPAY | PROVIDERS: PCP Internal Medicine Adolescent Medicine; Visit Provider Internal Medicine Adolescent Medicine | DX: I20.8 Other forms of angina pectoris (principal); I35.0 Nonrheumatic aortic (valve) stenosis; R07.9 Chest pain, unspecified; R55 Syncope and collapse | CPT/HCPCS: 78452; 93017; 93306; A9502; J2785 ==

== ENCOUNTER 2023-01-29 09:41 | Day surgery (SDC) | payer BC, SELFPAY ==
[2023-01-29] VITALS (11 sets, daily range): BP systolic 138–166; BP diastolic 77–88; PULSE 45–53; RESP 16–18; O2SAT 95–100; BMI 28.3
--- NOTE | 2023-01-29 07:11 | IR_ITS ---
APPROVED REPORT Patient Location: Outpatient PROCEDURES Selective coronary angiogram Drug-eluting stent deployment to the dominant right coronary artery Classic angina pectoris Known stents coronary artery disease/calcification based on CAT scan from January 20, 2022 Abnormal EKG suggesting inferior infarct INDICATION Classic angina pectoris, Known stents coronary artery disease/calcification based on CAT scan from January 20, 2022, Abnormal EKG suggesting inferior infarct, Abnormal stress test inferior ischemia, Clinical history: Patient with known coronary artery disease based on CAT scan from 2021 with classic angina pectoris. A nuclear stress test from December 2022 was interpreted as normal. I personally reviewed the images from [facility] and felt the stress images were highly abnormal suggesting inferior ischemia. Based on the above patient underwent cardiac catheterization. Cardiac catheterization did confirm a severe proximal dominant right coronary stenosis which was percutaneous revascularize. [facility] nuclear dock superintendent was contacted and we discussed the case over the phone and I requested the images be reviewed for quality assurance monitor chassis. The interpreting physician did again conclude the stress images were normal while the images at [facility] were clearly abnormal. I sent via cell phone a picture of the images I was visualizing and the [facility] dock superintendent agreed our images were abnormal and were vastly different than the images obtained at [facility]. Interestingly [facility] sent me the images they interpreted and I agreed with their interpretation of that test being normal. Clearly there is a discrepancy and a problem with digital transmission. Efforts are currently undertaken by [facility] administration and [facility] to quickly diagnose the digital transmission issue as well as assessing previous images already interpreted. Informed consent was obtained prior to the procedure. COMPLICATIONS None Estimated Blood Loss: Less than 10 ML TECHNIQUE One percent lidocaine used to anesthetize the right anterior aspect of the wrist. The right radial artery was accessed via the Seldinger technique. A 6 Peruvian sheath was placed in the right radial artery. 150 mg magnesium sulfate, 800 mcg of nitroglycerin, 1mg Lidocaine and 5000 U Heparin were given through the arterial sheath. There was significant tortuosity in the radial artery which required an advantage wire to negotiate the tortuosity and straighten the vessel. Still the Poppa catheter could not be passed through the tortuosity therefore the short 6 Peruvian hydrophilic sheath was removed and a 6 Peruvian 23 cm hydrophilic sheath was advanced over the 035 wire which passed the tortuous vessel and allow the Poppa catheter to engage the coronary arteries. At the end the diagnostic angiogram therapeutic heparin was administered and the guide catheter was placed in the right coronary artery followed by Choice PT extra-support wire. A 4 mm x 38 mm resolute frontier stent was initially deployed at 12 lidia. The balloon was brought back and exchanged for a 4 mm x 12 mm noncompliant balloon was then deployed at 20 lidia in the proximal and midportion of the vessel further post dilating and reducing the stenosis to less than 10%. ISIDRO-3 flow was present before and after the procedure. At the end the procedure the apparatus was removed the sheath was removed and hemostasis was achieved using TR banding patient was transferred to the postop putting in stable condition ANGIOGRAPHIC RESULTS The left main artery Normal The left anterior descending artery Has proximal 10
[2023-01-29 10:31] LABS: Basophils # 0.1 K/mm3 (0-0.2); Basophils % 0.6 % (0.1-2.0); Eosinophils # 0.5 K/mm3 (0.0-0.4); Eosinophils % 5.4 % (0.1-12.0); Hematocrit 46.1 % (42.0-52.0); Lymphocytes # 2.7 K/mm3 (0.7-4.5); Mean Corpuscular HGB Conc 32.6 g/dL (31.8-35.4); Mean Corpuscular Hemoglobin 30.2 pg (27.0-31.2); Mean Corpuscular Volume 92.6 fl (80-94); Mean Platelet Volume 8.6 fl (7.4-10.4); Monocytes # 0.7 K/mm3 (0.1-1.0); Monocytes % 7.1 % (1.7-9.3); Neutrophils # 5.9 K/mm3 (1.8-7.8); Neutrophils % 59.9 % (37.0-80.0); Platelet Count 191 K/mm3 (142-424); Red Blood Count 4.98 M/mm3 (4.60-6.20); Red Cell Distribution Width 13.6 % (11.5-17.5); White Blood Count 9.8 K/mm3 (4.8-10.8)
[2023-01-29 10:38] LABS: Anion Gap 10.9 mEq/L (5-15); Blood Urea Nitrogen 14 mg/dl (9-20); Calcium 9.4 mg/dl (8.4-10.2); Carbon Dioxide 31 mmol/L (22.0-30.0); Chloride 102 mmol/L (98-107); Creatinine Clearance Estimated 101 mL/min (50-200); Estimated Glomerular Filt Rate 136 ml/min (>60); GFR (African American) 165 ML/MIN (>60); Glucose 103 mg/dl (74-100); Potassium 3.9 mmoL/L (3.5-5.1); Sodium 140 mmol/L (136-145)
[2023-01-29 13:13] LABS: CATHL Activated Clotting Time 319 SEC (74-125)
--- NOTE | 2023-01-29 15:41 | HMH.PHACL ---
[facility] Discharge Med Budget And Policy Analyst: Oliverio Contreras has received discharge medication counseling on the following medications: -ASPIRIN (BLOOD THINNER, DAILY, BLEED/BRUISE RISK, BLEED LOCATION AND APPEARANCE, BUMP HEAD = GO TO ER TO RULE OUT HEAD BLEED) -BRILINTA (BLOOD THINNER, TWICE DAILY, SOB POSSIBLE, BLEED/BRUISE RISK, BLEED LOCATION AND APPEARANCE, BUMP HEAD = GO TO ER TO RULE OUT HEAD BLEED) -BISOPROLOL (ON PREVIOUSLY, NO QUESTIONS) -SIMVASTATIN (ON PREVIOUSLY, NO QUESTIONS) -NO YESSI/ARB PER CARIDOLOGY MD. PATIENT VERBALIZED NO QUESTIONS AT THIS TIME.
--- NOTE | 2023-01-29 15:41 | SUR.PHASEII ---
INSTRUCTINS GIVEN TO PATIENT AND SPOUSE , BOTH STATED UNDERSTANDING, RIGHT RADIAL SITE CDI.
== END 2023-01-29 15:42 | disposition home or self-care (01) ==
PROVIDERS: PCP Internal Medicine Adolescent Medicine; Visit Provider Internal Medicine
DX: R07.9 Chest pain, unspecified (principal); F17.210 Nicotine dependence, cigarettes, uncomplicated; Z79.899 Other long term (current) drug therapy; I25.118 Atherosclerotic heart disease of native coronary artery with other forms of angina pectoris; E11.9 Type 2 diabetes mellitus without complications; Z82.49 Family history of ischemic heart disease and other diseases of the circulatory system; I35.0 Nonrheumatic aortic (valve) stenosis
CPT/HCPCS: 80048; 85025; 85347; 92928; 93454; 99152; C1725; C1769; C1876; C9600; J1644; Q9967

== ENCOUNTER → 2023-02-17 07:37 | Outpatient (CLI) | payer BC, SELFPAY ==
--- NOTE | 2023-02-17 07:45 | US_ITS ---
FINAL REPORT CLINICAL HISTORY: smoker/cad FINDINGS: ABDOMINAL AORTA ANEURYSM (AAA) SCREENING Limited sonographic images of the abdominal aorta were obtained. The abdominal aorta measures up to 2.2 cm. There is no evidence of abdominal aortic aneurysm. IMPRESSION: No evidence of abdominal aortic aneurysm. Reviewed, Interpreted and Dictated by Crispin Blanco III, MD Transcribed by Madonna Livingston Authenticated and [facility]
--- NOTE | 2023-02-17 08:23 | CA_ITS ---
FINAL REPORT TECHNIQUE: Color Doppler, duplex Doppler and brito scale sonography of the bilateral neck arterial vasculature was performed. Velocities were measured in the carotid arteries. Stenosis evaluation based on the validated velocity criteria. CLINICAL HISTORY: dizziness, Family Hx- carotid stenosis with occlussion FINDINGS: The peak systolic velocity of the right common carotid artery is 76 cm/s. The peak systolic velocity of the right internal carotid artery is 103 cm/s and end diastolic velocity 42 cm/s. The ICA/CCA ratio is 1.7. A small amount of plaque is present. The right external carotid artery is patent. The right vertebral artery is patent with antegrade flow. The peak systolic velocity of the left common carotid artery is 103 cm/s. The peak systolic velocity of the left internal carotid artery is 134 cm/s and end diastolic velocity 51 cm/s. The ICA/CCA ratio is 1.4. A small amount of plaque is present. The left external carotid artery is patent.The left vertebral artery is patent with antegrade flow. IMPRESSION: Less than 50% bilateral carotid stenoses. Bilateral patent vertebral arteries with antegrade flow. If indicated, CTA or MRA could further evaluate. Reviewed, Interpreted and Dictated by Crispin Blanco III, MD Transcribed by Madonna Livingston Authenticated and [facility]
== END ==
PROVIDERS: PCP Internal Medicine Adolescent Medicine; Visit Provider Nurse Practitioner
DX: R42 Dizziness and giddiness (principal); R07.9 Chest pain, unspecified; R01.1 Cardiac murmur, unspecified; I25.10 Atherosclerotic heart disease of native coronary artery without angina pectoris; E11.9 Type 2 diabetes mellitus without complications; I10 Essential (primary) hypertension; I35.0 Nonrheumatic aortic (valve) stenosis; E78.5 Hyperlipidemia, unspecified; R94.31 Abnormal electrocardiogram [ECG] [EKG]; Z72.0 Tobacco use; Z79.84 Long term (current) use of oral hypoglycemic drugs; Z82.49 Family history of ischemic heart disease and other diseases of the circulatory system; Z95.5 Presence of coronary angioplasty implant and graft
CPT/HCPCS: 76705; 93880

== ENCOUNTER 2024-06-20 10:00 | Outpatient (RCR) | payer OTHER, SELFPAY ==
--- NOTE | 2024-04-24 08:56 | HMH.OTOPEV ---
OT Inpatient Evaluation Rehab OT Outpatient Eval Start: 04/24/24 08:32 Freq: Status: Active Protocol: Document 04/24/24 08:34 RMARSHALL (Rec: 04/24/24 08:55 [id number] E-signed By Eileen Contreras, OT Outpatient Therapy Subjective History Subjective History Pt is a 63 year old male who reports to therapy for initial evaluation to right shoulder. Pt reports he has been experiencing R shoulder pain for a couple of years and does not recall a specific injury causing pain to begin. Pt does demonstrate with decreased AROM and strength at right shoulder. Pt has most of his pain in abduction and internal rotation. Pt has not had an x-ray or MRI at this time. Pt will continue to be seen twice a week in order to address all deficits. New diagnosis of cancer in past 12 No months? Chief Complaint Pain,Stiff,Weakness Symptom Type Ache,Throb,Sharp Symptoms Relieved By Rest/Positioning Symptoms Aggravated By Physical Activity,Lifting Prior Functional Limitations None Current Functional Limitations Reaching,Lifting,Housework, Dressing Symptom Description Intermittent,Activity Dependent Level of pain today (0-10) 0 Pain scale - at its best (0-10) 0 Pain scale - at its worst (0-10) 9 Shoulder/Elbow Eval Shoulder Objective Measurements Shoulder ROM Right Shoulder Abduction Active Range of 90 degrees Motion (degrees) Shoulder Flexion Active Range of Motion 130 degrees (degrees) Query Text: Shoulder External Rotation Active Range 60 degrees of Motion (degrees) Shoulder Internal Rotation Active Range 70 degrees of Motion (degrees) Shoulder MMT Shoulder Abduction Strength Grade 3 Fair Shoulder Extension Strength Grade 3 Fair Shoulder Flexion Strength Grade 3 Fair Shoulder External Rotation Strength 3 Fair Grade Shoulder Internal Rotation Strength 3 Fair Grade Shoulder Special Tests impingement sign present shoulder exam right standard Shoulder Mcintyre-Ariel Impingement Positive Right Test Shoulder Neer Impingement Test Positive Right Shoulder [place] Test Positive Right Elbow Objective Measurements QuickDASH Activities Please rate your ability to do the following activities in the last week by selecting the number below the appropriate response. 1. Open a tight or new jar. No difficulty 2. Do heavy world travel counselor (e.g., wash Mild difficulty gallegos, floors). 3. Carry a shopping bag or briefcase. No difficulty 4. Wash your back. No difficulty 5. Use a knife to cut food. Mild difficulty 6. Recreational activities in which you Moderate difficulty take some force or impact through your arm, shoulder, or hand (e.g., golf, hammering, tennis, etc.). 7. During the past week, to what extent Slightly has your arm, shoulder or hand problem interfered with your normal social activities with family, friends, neighbors or groups? 8. During the past week, were you Moderately limited limited in your work or other regular daily activites as a result of your arm, shoulder or hand problem? 9. Arm, shoulder or hand pain. Moderate 10. Tingling (pins and needles) in your Mild arm, shoulder or hand. 11. During the past week, how much Mild difficulty difficulty have you had sleeping because of the pain in your arm, shoulder or hand? Quick DASH 22 OT Outpatient Assessment Impairments Problems/Impairments Palpation Tenderness,Impaired Range of Motion,Impaired Strength,Impaired Endurance, Impaired Lifting,Impaired Household Care,Impaired Work Activities,Subjective C/O Pain Prognosis Rehab Potential Good Clinical Impression Consistent with Diagnosis Yes Short Term Goals Number of Weeks 3 Increase Range of Motion Yes: Flex: 140 Abd: 110 ER: 75 Increase Strength Yes: 3+,4-/5 throughout right shoulder Increase Endurance Yes: Pt will tolerate R shoulder exercises for ~20 minutes prior to rest. Decrease Subjective C/O Pain Yes: 6/10 at worst Patient to be Ind w/ HEP Yes: AROM/AAROM exercises Improve Quick Dash Score Yes: Activities: 15 or below Fdc Goals Number of Weeks 6 Increase Range of Motion Yes: Flex: 160 Abd: 140 ER: 80 Increase Strength Yes: 4/5 throughout right shoulder Increase Endurance Yes: Pt will tolerate R shoulder exercises for ~30 minutes prior to rest. Decrease Subjective C/O Pain Yes: 4/10 at worst Patient to be Ind w/ Advanced HEP Yes: Advanced strengthening exercises Improve Quick Dash Score Yes: Activities: 10 or below Outpatient Therapy Plan of Care Treatment Plan May Include Therapeutic Exercise Including Home Yes Exercise Program Manual Therapy Techniques Yes Neuromuscular Re-education Yes Therapeutic Activities to Return to Yes Previous Functional/Work Level ADL/Self Care Education Yes Dry Needling Yes Thermal Modalities Yes Electrical Stimulation Yes Ultrasound/Phonophoresis Yes Iontophoresis Yes Orthotics/Bracing/Splinting Yes Massage Yes Eval/Re-Eval Yes Frequency Times per week 2 Duration Number of Weeks 6 Addendums This patient is a candidate for social No or vocational rehab? Patient/Guardian verbally acknowledges Yes understanding of treatment program and consents to further treatment? Patient/Guardian verbally acknowledges Yes understanding of diagnosis, prognosis and goals for treatment? Eval Complexity OT Charge 34585 - Moderate Complexity PHYSICIAN CERTIFICATION: I certify the specified therapy services for Oliverio Contreras are required, authorized, and reviewed every 30 days.
--- NOTE | 2024-05-25 09:59 | HMH.RHREAS ---
Rehab Reassessment Rehab OP Re-assessment Start: 04/24/24 07:57 Freq: Status: Active Protocol: Document 05/25/24 09:07 KALEE (Rec: 05/25/24 09:59 KALEE [id number]) E-signed By Eileen Contreras OT Rehab Re-assessment Subjective Subjective I think it's much better. Objective Objective Notes Pt continues to be seen twice a week in order to address right shoulder deficits. Pt engages in AROM, AAROM, and strengthening exercises each session. Pt also receives PROM manual stretching at right shoulder in all planes. Modalities are provided in order to decrease pain/ inflammation. Assessment Progress Assessment Progressing as Expected Assessment Notes Pt reports improved pain at a 5/10 at worst. Pt is consistent about attending therapy sessions. Pt also reports he completes his HEP at home daily. Pt demonstrates with improved AROM and strength at right shoulder. Current AROM R shoulder Flex: 155 degrees Abd: 150 degrees ER: 80 degrees IR: 70 degrees Patient goals met ST-6 Goals Not Met See below Revised Goals LT-6 New AROM goals: Flex: 160 degrees Abd: 160 degrees ER: 90 degrees Plan Plan Continue with OT plan of care at this time Frequency of Therapy 1-2x's a week Duration of therapy 4 more weeks Time and Billing Re-Eval Time 8 Re-Eval Billing Units 1 PHYSICIAN CERTIFICATION: I certify the specified therapy services for Oliverio Contreras are required, authorized, and reviewed every 30 days.
== END 2024-06-20 10:05 | disposition home or self-care (01) ==
LOC: OT 10:00
PROVIDERS: Visit Provider Internal Medicine Adolescent Medicine
DX: M25.511 Pain in right shoulder (principal)
CPT/HCPCS: 97014; 97035; 97110; 97140; 97164; 97166; G0283

== ENCOUNTER 2024-08-15 11:44 | Outpatient (CLI) | payer MEDICARE, SELFPAY ==
[2024-08-15 12:34] LABS: Basophils # 0.2 K/mm3 (0-0.2); Basophils % 2.2 % (0.1-2.0); Eosinophils # 0.4 K/mm3 (0.0-0.4); Eosinophils % 4.5 % (0.1-12.0); Hematocrit 50.4 % (42.0-52.0); Hemoglobin 17.6 g/dL (14.1-18.0); Lymphocytes # 2.5 K/mm3 (0.7-4.5); Lymphocytes % 32.1 % (10-50); Mean Corpuscular HGB Conc 34.9 g/dL (31.8-35.4); Mean Corpuscular Hemoglobin 31.6 pg (27.0-31.2); Mean Corpuscular Volume 90.7 fl (80-94); Mean Platelet Volume 9.3 fl (7.4-10.4); Monocytes # 0.7 K/mm3 (0.1-1.0); Monocytes % 9.2 % (1.7-9.3); Neutrophils % 52.1 % (37.0-80.0); Platelet Count 162 K/mm3 (142-424); Red Blood Count 5.56 M/mm3 (4.60-6.20); Red Cell Distribution Width 13.7 % (11.5-17.5); White Blood Count 7.7 K/mm3 (4.8-10.8)
[2024-08-15 12:42] LABS: Alanine Aminotransferase 41 U/L (12-78); Albumin Level 4.6 g/dl (3.5-5.0); Alkaline Phosphatase 75 U/L (38-126); Anion Gap 10.7 mEq/L (5-15); Aspartate Amino Transferase 47 U/L (17-59); Bilirubin,Direct 0.3 mg/dl (0.0-0.4); Bilirubin,Indirect 0.2 mg/dL (0.0-0.9); Bilirubin,Total 0.5 mg/dl (0.2-1.3); Bilirubin,Unconjugated 0.2 mg/dL (0.0-1.1); Blood Urea Nitrogen 12 mg/dl (9-20); Calcium 9.6 mg/dl (8.4-10.2); Carbon Dioxide 30 mmol/L (22.0-30.0); Chloride 104 mmol/L (98-107); Chol/HDL Ratio 4.7 (1-3.5); Cholesterol 126 mg/dl (140-200); Estimated Glomerular Filt Rate 97 ml/min (>60); GFR (African American) 117 ML/MIN (>60); Glucose 184 mg/dl (74-100); HDL Cholesterol 27 mg/dl (40-60); Magnesium 2.2 mg/dl (1.6-2.3); Potassium 3.7 mmoL/L (3.5-5.1); Sodium 141 mmol/L (136-145); Total Protein,Serum 7.6 g/dl (6.3-8.2); Triglycerides 376 mg/dl (30-150); VLDL Cholesterol 75 mg/dL (0-40)
[2024-08-15 12:52] LABS: Direct LDL Cholesterol 69.24 mg/dL (100-129)
[2024-08-15 13:02] LABS: Troponin I < 0.01 ng/ml (0.00-0.034)
[2024-08-15 13:14] LABS: Thyroid Stimulating Hormone 1.55 uIU/mL (0.465-4.68)
[2024-08-15 13:35] LABS: Free T4 (Free Thyroxine) 0.92 ng/dl (0.78-2.19)
== END 2024-08-15 23:59 | disposition home or self-care (01) ==
LOC: LAB 11:47
PROVIDERS: PCP Internal Medicine Adolescent Medicine; Visit Provider Physician Assistant
DX: R06.00 Dyspnea, unspecified (principal); M79.602 Pain in left arm; R00.1 Bradycardia, unspecified; Z95.5 Presence of coronary angioplasty implant and graft; E11.69 Type 2 diabetes mellitus with other specified complication; E78.5 Hyperlipidemia, unspecified; I10 Essential (primary) hypertension; Z72.0 Tobacco use; I35.0 Nonrheumatic aortic (valve) stenosis; R94.31 Abnormal electrocardiogram [ECG] [EKG]; I11.9 Hypertensive heart disease without heart failure; K21.9 Gastro-esophageal reflux disease without esophagitis; I25.118 Atherosclerotic heart disease of native coronary artery with other forms of angina pectoris
CPT/HCPCS: 36415; 80048; 80061; 80076; 83735; 84439; 84443; 84484; 85025

== ENCOUNTER 2024-08-16 08:48 | Day surgery (SDC) | payer MEDICARE, SELFPAY ==
[2024-08-16] VITALS (12 sets, daily range): BP systolic 122–157; BP diastolic 54–90; PULSE 50–62; RESP 18–20; TEMP 36.9; O2SAT 94–98; BMI 29.7
--- NOTE | 2024-08-16 07:01 | IR_ITS ---
APPROVED REPORT Patient Location: Outpatient PROCEDURES Left heart catheterization Left ventriculogram Selective coronary angiogram Drug-eluting stent deployment to the proximal and mid dominant right coronary artery Intravascular ultrasound INDICATION Unstable angina, Coronary artery disease Informed consent was obtained prior to the procedure. COMPLICATIONS NONE Estimated Blood Loss: LESS THAN 10 ML TECHNIQUE One percent lidocaine was used to anesthetize the right groin. The right femoral artery was accessed via the Seldinger technique. A 4-[place] sheath was placed in the right femoral artery. The JL-4 and JR-4 catheter was also used to perform left heart catheterization left ventriculogram and selective coronary angiogram. At the end the diagnostic angiogram therapeutic heparin was administered giving a therapeutic ACT and the 4 [place] sheath was exchanged for a 6 [place] sheath. A JR4 guide catheter was placed in the right coronary artery followed by a BMW wire placed distally. A 4.5 x 22 mm Ney frontier stent was deployed at 16 lidia in the mid right coronary artery. An additional 4.5 x 12 mm noncompliant balloon was deployed at 24 lidia in the midportion and proximal portion of this stent further reducing the stenosis. Intravascular ultrasound probe was advanced which demonstrated excellent stent apposition and expansion of the stent. There is excellent distal transitioning into the red devil vessel. At the end of the procedure the apparatus was removed the groin is reprepped closure change sheath was removed and hemostasis was achieved using Perclose device patient was transferred to the postop putting in stable condition Radial sheath was then placed however due to the tortuosity in the radial artery the guide catheter could not be advanced. Because of this groin access was performed. At the end of the procedure the right radial sheath was removed and hemostasis was achieved using TR banding. ANGIOGRAPHIC RESULTS The left main artery Normal The left anterior descending artery Has proximal 10% luminal regularities with mid vessel tandem 30% stenoses. There is a mid highly eccentric and focal lesion creating a 40 to 50% stenosis with angiographic evidence of a ruptured plaque at the proximal shoulder. ISIDRO-3 flow was present The circumflex artery Is nondominant has 10% luminal regularities The right coronary artery Large and dominant with proximal tendon 20% stenosis with a stent in the proximal to mid segment which has 70% concentric in-stent restenosis. Distally there is a large eccentric plaque which creates 30 to 40% stenosis The [place] ventriculogram reveals Normal 65% The left ventricular end-diastolic pressure 10 mmHg IMPRESSION Ruptured plaque in the mid LAD which is best treated medically at this point given patient's history of rather aggressive in-stent restenosis in the mid dominant right coronary Successful stenting of the mid right coronary artery severe concentric intimal hyperplasia reduced to less than 10% with 1 drug-eluting stent Normal ejection fraction Normal LVEDP PLAN 1. Dual antiplatelet therapy 2. Recommend immediate tobacco cessation 3. Tighter control of diabetes 4. Recommend LDL less than 55 to be achieved with high intensity statin 5. Aggressive risk factor modification 6. Cardiac rehabilitation Electronically signed by : David Maloney MD 08/16/2024 14:02:58
[2024-08-16 09:24] LABS: Basophils # 0.1 K/mm3 (0-0.2); Basophils % 1.7 % (0.1-2.0); Eosinophils # 0.4 K/mm3 (0.0-0.4); Hematocrit 49.8 % (42.0-52.0); Hemoglobin 17.2 g/dL (14.1-18.0); Lymphocytes # 1.9 K/mm3 (0.7-4.5); Lymphocytes % 26.7 % (10-50); Mean Corpuscular HGB Conc 34.5 g/dL (31.8-35.4); Mean Corpuscular Hemoglobin 31.3 pg (27.0-31.2); Mean Corpuscular Volume 90.6 fl (80-94); Mean Platelet Volume 9.1 fl (7.4-10.4); Monocytes # 0.7 K/mm3 (0.1-1.0); Monocytes % 9.2 % (1.7-9.3); Neutrophils # 4.1 K/mm3 (1.8-7.8); Neutrophils % 57.4 % (37.0-80.0); Platelet Count 166 K/mm3 (142-424); Red Blood Count 5.49 M/mm3 (4.60-6.20); Red Cell Distribution Width 13.8 % (11.5-17.5); White Blood Count 7.1 K/mm3 (4.8-10.8)
[2024-08-16 09:32] LABS: Anion Gap 12.4 mEq/L (5-15); Blood Urea Nitrogen 14 mg/dl (9-20); Calcium 9.4 mg/dl (8.4-10.2); Carbon Dioxide 30 mmol/L (22.0-30.0); Chloride 103 mmol/L (98-107); Creatinine Clearance Estimated 103 mL/min (50-200); Estimated Glomerular Filt Rate 113 ml/min (>60); GFR (African American) 137 ML/MIN (>60); Glucose 127 mg/dl (74-100); Potassium 3.4 mmoL/L (3.5-5.1); Sodium 142 mmol/L (136-145)
[2024-08-16] MEDS: LIDOCAINE 1% 10ML MDV 20 ML IJ ×2 (11:27→11:48)
[2024-08-16] MEDS: FENTANYL 100MCG/2ML VIAL 50 MCG IV (11:27)
[2024-08-16] MEDS: MIDAZOLAM HCL 1MG/ML 5ML VIAL 1 MG IV (11:27)
[2024-08-16] MEDS: VERAPAMIL 2.5MG/ML 2ML VIAL 2.5 MG IV (11:28)
[2024-08-16] MEDS: HEPARIN 1,000 UNITS/500ML NS (CATH LAB) 3000 UNIT IV (11:28)
[2024-08-16] MEDS: HEPARIN 1,000 UNITS/ML 10ML VIAL (CATH LAB) 10000 UNIT IV (11:28)
[2024-08-16] MEDS: NITROGLYCERIN 800MCG/8ML SYR (CATH LAB) 800 MCG IA (11:29)
[2024-08-16] MEDS: 0.9 % SODIUM CHLORIDE 500 ML 25 ML IV (11:29)
[2024-08-16] MEDS: diphenhydrAMINE 50MG/ML VIAL 50 MG IV (11:48)
[2024-08-16] MEDS: CLOPIDOGREL 75MG TAB 75 MG PO (12:24)
[2024-08-16] MEDS: IOPAMIDOL-370 (76%);100ML BOTTLE 120 ML IV (14:29)
[2024-08-16 14:34] LABS: CATHL Activated Clotting Time > 400 SEC (74-125)
== END 2024-08-16 15:16 | disposition home or self-care (01) ==
PROVIDERS: PCP Internal Medicine Adolescent Medicine; Visit Provider Internal Medicine
DX: I25.110 Atherosclerotic heart disease of native coronary artery with unstable angina pectoris (principal); I77.1 Stricture of artery; T82.855A Stenosis of coronary artery stent, initial encounter; M79.602 Pain in left arm; R00.1 Bradycardia, unspecified; Z95.5 Presence of coronary angioplasty implant and graft; E11.69 Type 2 diabetes mellitus with other specified complication; E78.5 Hyperlipidemia, unspecified; I10 Essential (primary) hypertension; F17.210 Nicotine dependence, cigarettes, uncomplicated; I35.0 Nonrheumatic aortic (valve) stenosis; R94.31 Abnormal electrocardiogram [ECG] [EKG]; I65.23 Occlusion and stenosis of bilateral carotid arteries; Z82.49 Family history of ischemic heart disease and other diseases of the circulatory system; Z79.84 Long term (current) use of oral hypoglycemic drugs; Z79.899 Other long term (current) drug therapy
CPT/HCPCS: 80048; 85025; 85347; 92928; 92978; 93458; 99152; 99153; C1725; C1760; C1769; C1874; C1894; C9600; J1200; J1644; J2250; J3010; Q9967

== ENCOUNTER 2024-08-21 10:19 | Outpatient (CLI) | payer MEDICARE, SELFPAY ==
[2024-08-21 11:00] LABS: Basophils # 0.1 K/mm3 (0-0.2); Basophils % 1.1 % (0.1-2.0); Eosinophils # 0.5 K/mm3 (0.0-0.4); Eosinophils % 4.6 % (0.1-12.0); Hematocrit 50.1 % (42.0-52.0); Hemoglobin 17.3 g/dL (14.1-18.0); Lymphocytes # 3.2 K/mm3 (0.7-4.5); Lymphocytes % 27.4 % (10-50); Mean Corpuscular HGB Conc 34.6 g/dL (31.8-35.4); Mean Corpuscular Hemoglobin 31.5 pg (27.0-31.2); Mean Corpuscular Volume 91.1 fl (80-94); Mean Platelet Volume 9.6 fl (7.4-10.4); Monocytes # 0.8 K/mm3 (0.1-1.0); Monocytes % 6.9 % (1.7-9.3); Neutrophils # 7.1 K/mm3 (1.8-7.8); Neutrophils % 59.9 % (37.0-80.0); Platelet Count 199 K/mm3 (142-424); Red Cell Distribution Width 13.7 % (11.5-17.5); White Blood Count 11.8 K/mm3 (4.8-10.8)
[2024-08-21 11:21] LABS: Alanine Aminotransferase 30 U/L (12-78); Albumin Level 4.6 g/dl (3.5-5.0); Albumin/Globulin Ratio 1.8 (1.1-1.8); Alkaline Phosphatase 72 U/L (38-126); Anion Gap 11.7 mEq/L (5-15); Aspartate Amino Transferase 44 U/L (17-59); Bilirubin,Total 0.6 mg/dl (0.2-1.3); Blood Urea Nitrogen 16 mg/dl (9-20); Calcium 10.2 mg/dl (8.4-10.2); Carbon Dioxide 29 mmol/L (22.0-30.0); Chloride 104 mmol/L (98-107); Estimated Glomerular Filt Rate 113 ml/min (>60); GFR (African American) 137 ML/MIN (>60); Globulin 2.5 g/dL (1.3-3.2); Glucose 158 mg/dl (74-100); Potassium 3.7 mmoL/L (3.5-5.1); Sodium 141 mmol/L (136-145); Total Protein,Serum 7.1 g/dl (6.3-8.2)
== END 2024-08-21 23:59 | disposition home or self-care (01) ==
LOC: LAB 10:22
PROVIDERS: PCP Internal Medicine Adolescent Medicine; Visit Provider Internal Medicine
DX: I25.10 Atherosclerotic heart disease of native coronary artery without angina pectoris (principal)
CPT/HCPCS: 36415; 80053; 85025

== ENCOUNTER 2024-08-28 07:50 | Outpatient (CLI) | payer MEDICARE, SELFPAY ==
--- NOTE | 2024-08-28 07:54 | CA_ITS ---
APPROVED REPORT EXAM: Comprehensive 2D, Doppler, and color-flow Echocardiogram [employer] Superintendent: Viola Hassan RDCS Ht: 6 ft 0 in Wt: 219lbs BSA: 2.21 BP: 159/86 mmHg Indications: ABN EKG,SHEELA,CAD, M-Mode Dimensions RVDd 3.49 cm (0.9-2.6) LA Diam 3.96 cm (1.9-4.0) LVDd 5.06 cm (3.5-5.7) LVDs 3.29 cm (3.5-5.7) IVSd 0.72 cm (0.6-1.1) PWd 1.00 cm (0.6-1.1) EF (Teich) 64.00% EPSs 3.45 cm FS 35.00% EDV (Teich) 121.60 mL ESV (Teich) 43.80 mL Aortic Valve MARIA LUZ Index 0.66 cm2/m2 AoV Peak Marcello. 241.0 (50-130 cm/s) AO Peak GR. 23.10 mmHg AO Mean GR. 11.30 (<5 mmHg) AO VTI 47.0 (18-25 cm) MARIA LUZ (VTI) 1.50 (2.5-4.5 cm2) Left Ventricle The left ventricle is normal size. The left ventricular systolic function is normal. The left ventricular ejection fraction is within the normal range. There is increased LV wall thickness. There is normal LV segmental wall motion. The left ventricular diastolic function is normal. LVEF is 60%. Right Ventricle The right ventricle is normal size. The right ventricular systolic function is normal. Atria The left atrium size is normal. The right atrium size is normal. There is no Doppler evidence of interatrial shunt. Aortic Valve The aortic valve is mildly thickened. Mild aortic stenosis is present. Peak velocity 2.3 m/s. Mean AV gradient 11 mmHg. Max AV gradient 22 mmHg. MARIA LUZ by continuity equation is 1.6 cm???. Trace aortic regurgitation. Mitral Valve Mild mitral annular calcification. The mitral valve leaflets are mildly thickened. No evidence of mitral valve stenosis. Trace mitral regurgitation. Tricuspid Valve Tricuspid valve is grossly normal in structure and function. Trace tricuspid regurgitation. There is insufficient TR jet to estimate RVSP. Pulmonic Valve The pulmonary valve is normal in structure. Trace pulmonic regurgitation. Great Vessels The aortic root is normal in size. The ascending aorta is not well-visualized. IVC is normal in size and collapses >50% with inspiration. Pericardium There is no pericardial effusion. Other Information Study Quality: Fair Conclusion Normal biventricular systolic function. Mild . Peak velocity 2.3 m/s. Mean AV gradient 11 mmHg. Max AV gradient 22 mmHg. MARIA LUZ by continuity equation is 1.6 cm???. Compared to prior study from 01/26/2023, the transaortic gradients are unchanged. Electronically signed by : Maribeth Stevens MD 08/28/2024 11:57:52
== END 2024-08-28 23:59 | disposition home or self-care (01) ==
LOC: RT 07:51
PROVIDERS: PCP Internal Medicine Adolescent Medicine; Visit Provider Physician Assistant
DX: I35.0 Nonrheumatic aortic (valve) stenosis (principal); Z95.5 Presence of coronary angioplasty implant and graft
CPT/HCPCS: 93306

== ENCOUNTER 2024-08-30 13:39 | Outpatient (RCR) | payer MEDICARE, SELFPAY | END 2024-09-28 11:00 | disposition home or self-care (01) | LOC: CR 13:39 | PROVIDERS: Visit Provider Internal Medicine | DX: Z98.890 Other specified postprocedural states (principal); Z95.5 Presence of coronary angioplasty implant and graft | CPT/HCPCS: 93798 ==

== ENCOUNTER 2024-11-23 07:31 | Outpatient (CLI) | payer MEDICARE, SELFPAY ==
[2024-11-23 08:04] LABS: Basophils # 0.1 K/mm3 (0-0.2); Basophils % 0.8 % (0.1-2.0); Eosinophils # 0.4 K/mm3 (0.0-0.4); Eosinophils % 4.8 % (0.1-12.0); Hematocrit 50.9 % (42.0-52.0); Hemoglobin 17.8 g/dL (14.1-18.0); Lymphocytes # 2.5 K/mm3 (0.7-4.5); Lymphocytes % 27.3 % (10-50); Mean Corpuscular Hemoglobin 31.3 pg (27.0-31.2); Mean Corpuscular Volume 89.6 fl (80-94); Mean Platelet Volume 10.8 fl (7.4-10.4); Monocytes # 0.8 K/mm3 (0.1-1.0); Monocytes % 8.4 % (1.7-9.3); Neutrophils # 5.3 K/mm3 (1.8-7.8); Neutrophils % 58.6 % (37.0-80.0); Platelet Count 158 K/mm3 (142-424); Red Blood Count 5.68 M/mm3 (4.60-6.20); Red Cell Distribution Width 12.9 % (11.5-17.5); White Blood Count 9.1 K/mm3 (4.8-10.8)
[2024-11-23 08:34] LABS: Alanine Aminotransferase 27 U/L (12-78); Albumin Level 4.6 g/dl (3.5-5.0); Alkaline Phosphatase 78 U/L (38-126); Aspartate Amino Transferase 37 U/L (17-59); Bilirubin,Direct 0.2 mg/dl (0.0-0.4); Bilirubin,Indirect 0.4 mg/dL (0.0-0.9); Bilirubin,Total 0.6 mg/dl (0.2-1.3); Bilirubin,Unconjugated 0.4 mg/dL (0.0-1.1); Blood Urea Nitrogen 12 mg/dl (9-20); Calcium 9.9 mg/dl (8.4-10.2); Carbon Dioxide 31 mmol/L (22.0-30.0); Chloride 104 mmol/L (98-107); Chol/HDL Ratio 4.6 (1-3.5); Cholesterol 114 mg/dl (140-200); Estimated Glomerular Filt Rate 113 ml/min (>60); GFR (African American) 137 ML/MIN (>60); Glucose 158 mg/dl (74-100); HDL Cholesterol 25 mg/dl (40-60); Potassium 3.4 mmoL/L (3.5-5.1); Total Protein,Serum 6.7 g/dl (6.3-8.2); Triglycerides 219 mg/dl (30-150); VLDL Cholesterol 44 mg/dL (0-40)
[2024-11-23 08:44] LABS: Anion Gap 7.4 mEq/L (5-15); Sodium 139 mmol/L (136-145)
[2024-11-23 08:46] LABS: Direct LDL Cholesterol 50.74 mg/dL (100-129)
[2024-11-23 08:47] LABS: Free T4 (Free Thyroxine) 0.85 ng/dl (0.78-2.19)
[2024-11-23 09:04] LABS: Thyroid Stimulating Hormone 1.47 uIU/mL (0.465-4.68)
[2024-11-23 10:36] LABS: Hemoglobin A1C 7.1 % (4.0-6.0)
== END 2024-11-23 23:59 | disposition home or self-care (01) ==
PROVIDERS: Nurse Practitioner Family; PCP Internal Medicine Adolescent Medicine; Visit Provider Physician Assistant
DX: E78.5 Hyperlipidemia, unspecified (principal); I11.9 Hypertensive heart disease without heart failure; I25.10 Atherosclerotic heart disease of native coronary artery without angina pectoris; E78.1 Pure hyperglyceridemia; E11.69 Type 2 diabetes mellitus with other specified complication; Z87.891 Personal history of nicotine dependence
CPT/HCPCS: 36415; 80048; 80061; 80076; 83036; 84439; 84443; 85025

== ENCOUNTER 2025-04-12 07:37 | Outpatient (CLI) | payer MEDICARE, SELFPAY ==
--- OUTSIDE RECORDS SUMMARY | 2025-04-12 07:40 | XMS_ITS | Clinical Summary ---
Author Organization [facility] Address [address] [place] [address] Care Team Providers Care Nuclear Medicine Pet Ct Technologist Name Role Phone Fabián Burgess MD Primary Care Provider [phone] Family History Medical History Relation Name Comments Cardiac disorder Father Hypertension Father Relation Name Status Comments Father Social History Tobacco Use Types Packs/Day Years Used Date Smoking Tobacco: Never Assessed Alcohol Use Standard Drinks/Week Comments Yes 0 (1 standard drink = 0.6 oz pur e alcohol) Sex and Gender Information Value Date Recorded Sex Assigned at Not on file Legal Sex Male 5:59 PM EDT Gender Identity Not on file Sexual Orientation Not on file Last Filed Vital Signs Vital Sign Reading Time Taken Comments Blood Pressure - - Pulse - - Temperature - - Respiratory Rate - - Oxygen Saturation - - Inhaled Oxygen Concentration - - Weight 107 kg (236 lb) 09/04/2015 1:42 PM EST Height 182.9 cm (6') 09/04/2015 1:42 PM EST Body Mass Index 32.01 09/04/2015 1:42 PM EST Plan of Treatment Health Maintenance Due Date Last Done Comments [facility]-Depression Screening 1959 [facility]-/Child/Adol SDOH Screenings 1959 [facility]- SDOH Screenings 1977 [facility]-Adult SDOH Screenings 1977 CT Colonography 2004 Colonoscopy 2004 FIT-DNA 2004 FIT 2004 FOBT 2004 Sigmoidoscopy 2004 [facility]-Colorectal Cancer Screening 2004 [id number] Vaccine ( season) 2024 03/28/2022, 08/22/2021, 12/03/2020 [facility]-Influenza Vaccine (#1) 05/28/202508/16, 07/21/2021, 08/14/2019 [facility]-Pneumococcal Vaccine: 50 + Years (3 of 3 - PCV20 or PCV21) 04/20/2027 04/20/2022, 04/07/2021 [facility]-DTaP,Tdap,and Td Vaccine s (2 - Td or Tdap) 04/07/2031 04/07/2021 [facility]-RSV Vaccine: 60+ Years o r (1 - 1-dose 75+ series) 2034 [facility]-Hepatitis A Vaccines Completed , 02/06/2019, 06/27/2018 [facility]-Zoster Vaccines Completed 01/12/2022, 07/21/2021 HPV Vaccines Aged Out No longer eligi ble based on patient's age to complete this topic [facility]-HIB Vaccines Aged Out No longer e ligible based on patient's age to complete this topic [facility]-IPV Vaccines Aged Out No longer e ligible based on patient's age to complete this topic [facility]-Rotavirus Vaccines Aged Out No lo nger eligible based on patient's age to complete this topic Insurance REBECCA Care Teams Nuclear Medicine Pet Ct Technologist Relationship Specialty Start Date End Date Fabián Burgess MD [address] [place] [address] [place] [id number] [facility] - General 02/07/21
--- OUTSIDE RECORDS SUMMARY | 2025-04-12 07:40 | XMS_ITS | Data Portability ---
Author Organization [place] - [facility] - [facility] AD[facility] Address [address] [place] [id number] Care Team Providers Care Chuck Wagon Cook Name Role Phone AMBER PERRY Primary Care Provider Assessment Encounter Date Assessment Date Assessment LastModified by Organization Details LastModified Time 08/03/2023 08/03/2023 Diagnosis Otitis Externa Patient was instructed on diagnosis, to take medicine as prescribed below Tylenol/motrin as needed for pain and fever warm compresses to the ear patient/parent states understanding seek care for any worsening symptoms left ear cerumen impaction ear cleaned out during visit [email or web address] Not available 08/03/2023 10:53:29 01/19/2025 01/19/2025 after ear cleaning RIGHT otitis externa ad media noted (TM is red and bulging and external ear is red and tender on exam ) Diagnosis Otitis externa and media Patient was instructed on diagnosis, to take medicine as prescribed below Tylenol/motrin as needed for pain and fever warm compresses to the ear patient states understanding seek care for any worsening symptoms [email or web address] Not available 01/19/2025 18:00:50 Plan of Treatment Reminders Order Date Submit Date Provider Last Modified By Organization Details Last Modified Time Details Appointments OV EST 15 2024 08:30A Jesus HOSKINS MD Not available Not available Not available Lab PSA, total, serum or plasma 2024 025 maria [email or web address] [facility] (Registration ), [address] [facility], [place], [address], 12/28/2024 08:55:13 Referral None recorded. Procedures cerumen removal (PROC) 2024 025 [email or web address] [facility], [address], [place], [address], 02/16/2025 08:11:57 bladder scan (PROC) 2024 025 [email or web address] [facility], [address], [place], [address], 12/07/2024 09:03:10 Surgeries None recorded. Imaging None recorded. Medication Orders amoxicill in 875 mg tablet [address] [facility] [place], [address], 01/19/2025 18:00:28 neomycin- polymyxin -hydrocor t 3.5 mg-10,000 unit/mL-1 % ear drops,gonzález p [address] [facility], [address] [place], [address], 01/19/2025 17:57:24 neomycin- polymyxin -hydrocor t 3.5 mg-10,000 unit/mL-1 % ear drops,gonzález p [address] [facility], [address] [place], [address], 08/03/2023 10:50:02 Patient TargetsNo targets recorded. Patient InstructionsNo instructions recorded. Reason for Referral None Reported. Results Created Date Observation Date Name Description Value Unit Range Abnormal Flag Note LastModifiedBy Organization Detail LastModifiedTime 12/08/1912/07/2024 PROST ATE SPECI FIC AG (PSA) prostate specific Ag (PSA) 2.4 NG/mL 0-4.0 Not Available [facility]) [address] [facility], [place], [address], 12/07/2024 10:29:25 12/08/19 25 12/07/2024 bladd er scan (PROC ) Calculated Residual Urine: 43 Not Available [facility] [address], [place], [address], 12/07/2024 08:45:08 Result Notes None recorded. Problems Name Problem SNOMED Code Status Onset Date Resolution Date Notes Provider Name and Address Organization Details Recorded Time Hypercholeste rolemia 25842786 Active 2024 Alejandra [place], [place] - [facility] [place] [facility] [place] 5 08:37:38 History of myocardial infarction 872177166 Active 2024 Alejandra [place], [place] - [facility] [place] [facility] [place] 5 08:40:10 Asthma - currently active 675952173 Active 2024 Alejandra [place], [place] - [facility] [place] [facility] [place] 5 08:42:16 Essential hypertension 73573719 Active 2024 Alejandra Negro null, [place] - [facility] [place] [facility] [place] 5 08:44:06 Heart disease 48027733 Active 2024 Alejandra [place], [place] - [facility] [place] [facility] [place] 5 08:44:17 Gastro-esopha geal reflux disease with esophagitis 787506095 Active 2024 Alejandra [place], [place] - [facility] [place] [facility] [place] 5 08:44:32 Erectile dysfunction 636603664 Active 2024 DAVID HOSKINS MD [address] , [place], [address] , [place] - [facility] [place] [facility] [place] 5 08:59:55 Problem Notes None recorded. Medical Equipment None Reported. Allergies No known drug allergies Medications Name Sig Start Date Stop Date Status Note LastModified by Organization Details LastModified Time latanoprost 0.005 % eye drops INSTILL 1 DROP INTO EACH EYE IN THE EVENING active Not Available Not Available No t Available metformin 500 mg tablet TAKE 1 TABLET BY MOUTH ONCE DAILY 12/07 completed Not Available Not Available Not Available atorvastati n 80 mg tablet TAKE 1 TABLET BY MOUTH EVERY DAY 12/07 completed Not Available Not Available Not Available bisoprolol 5 mg-hydrochl orothiazide 6.25 mg tablet TAKE 1 TABLET BY MOUTH ONCE DAILY 12/07 completed Not Available Not Available Not Available clopidogrel 75 mg tablet TAKE 1 TABLET BY MOUTH ONCE DAILY active Not Available Not Available No t Available bisoprolol 2.5 mg-hydrochl orothiazide 6.25 mg tablet TAKE 1 TABLET BY MOUTH ONCE DAILY active Not Available Not Available No t Available alprazolam 0.5 mg tablet TAKE 1 TABLET BY MOUTH TWICE DAILY NEEDED active Not Available Not Available No t Available amoxicillin 875 mg tablet TAKE 1 TABLET BY MOUTH EVERY 12 HOURS FOR 10 DAYS active Not Available Not Available No t Available temazepam 30 mg capsule TAKE 1 CAPSULE BY MOUTH ONCE DAILY AT BEDTIME active Not Available Not Available No t Available nitroglycer in 0.4 mg sublingual tablet active Not Available Not Available Not Available gabapentin 300 mg capsule TAKE 1 CAPSULE BY MOUTH THREE TIMES DAILY active Not Available Not Available No t Available dorzolamide 22.3 mg-timolol 6.8 mg/mL eye drops INSTILL 1 DROP TWICE DAILY TO AFFECTED EYE(S) active Not Available Not Available No t Available albuterol sulfate HFA 90 mcg/actuati on aerosol inhaler INHALE 2 PUFFS BY MOUTH 4 TIMES DAILY active Not Available Not Available No t Available cefdinir 300 mg capsule TAKE 1 CAPSULE BY MOUTH EVERY 12 HOURS FOR 7 DAYS 12/07 completed Not Available Not Available Not Available metformin ER 500 mg tablet,exte nded release 24 hr TAKE 1 TABLET BY MOUTH ONCE DAILY 12/07 completed Not Available Not Available Not Available neomycin-po lymyxin-hyd rocort 3.5 mg-10,000 unit/mL-1 % ear drops,susp INSTILL 4 DROPS INTO AFFECTED EAR(S) THREE TIMES DAILY active Not Available Not Available No t Available Sure Comfort Insulin Syringe 1 mL 29 gauge x 1/2 USE DIRECTED active Not Available Not Available No t Available rosuvastati n 20 mg tablet TAKE 1 TABLET BY MOUTH ONCE DAILY 12/07 completed Not Available Not Available Not Available rosuvastati n 40 mg tablet TAKE 1 TABLET BY MOUTH ONCE DAILY active Not Available Not Available No t Available bupropion HCl XL 150 mg 24 hr tablet, extended release TAKE 1 TABLET BY MOUTH ONCE DAILY 12/07 completed Not Available Not Available Not Available sildenafil (pulmonary hypertensio n) 20 mg tablet TAKE 5 TABLETS BY MOUTH ONCE DAILY 12/07 completed Not Available Not Available Not Available folic acid active Not Available Not Av ailable Not Available Brilinta 90 mg tablet TAKE 1 TABLET BY MOUTH TWICE DAILY 12/07 completed Not Available Not Available Not Available Vascepa 1 gram capsule TAKE 2 CAPSULES BY MOUTH TWICE DAILY active Not Available Not Available No t Available Vascepa active Not Available Not Avail able Not Available Farxiga 10 mg tablet TAKE 1 TABLET BY MOUTH ONCE DAILY active Not Available Not Available No t Available Vitamin B12 active Not Available Not A vailable Not Available Rybelsus 7 mg tablet TAKE 1 TABLET BY MOUTH ONCE DAILY AT LEAST 30 MINUTES BEFORE FIRST FOOD, BEVERAGE, OR OTHER ORAL MEDICINE OF THE DAY active Not Available Not Available No t Available Vitals Date Recorded Body height Body mass index (BMI) Body weight Oxygen saturation Oxygen saturation in Arterial blood by Pulse oximetry Heart rate Systolic And Diastolic Provider Name and Address Organization Details Last Updated DateTime 5 182.88 cm 28.1 kg/m2 11760.6 2 g 97 % 97 % 68 /min 144/76 mm[Hg] Alejandra Negro [facility] & [place] 5 08:32:44 Date Recorded Body height Body mass index (BMI) Body weight Body temperature Provider Name and Address Organization Details Last Updated DateTime 01/19/2025 182.88 cm 28 kg/m2 52818.18 g 97.2 [degF] Sharmila Deion [facility] & [place] 01/19/2025 17:44:19 Date Recorded Body height Body mass index (BMI) Body weight Body temperature Heart rate Systolic And Diastolic Provider Name and Address Organization Details Last Updated DateTime 3 185.42 cm 28.4 kg/m2 60366.3 6 g 97.3 [degF] 57 /min 159/75 mm[Hg] [facility] & [place] 3 10:45:45 Social History None recorded. Functional Status None recorded. Mental Status None recorded. Family History Nothing Reported. Medical History No medical history recorded. Past Encounters Encounter ID Performer Location Encounter Start Date Encounter Closed Date Diagnosis/Indication Diagnosis SNOMED-CT Code Diagnosis ICD10 Code Diagnosis Note [id number] [facility] [address] [address] [place] [address] 08/03/2023 10:36:52 08/03/2023 11:14:03 Acute otitis externa 20613393 H60.509 Impacted cerumen 6808307 6 H61.22 [id number] DAVID HOSKINS MD [facility] 00 [address] [facility] [address] [place] [address] 12/07/2024 08:19:32 12/07/2024 09:11:18 Prostate specific antigen measurement 75065351 Z12.5 Digital rectal exam today is unremarkab le. Patient denies any significan t lower urinary tract symptoms. We will check routine screening PSA today. Erectile dysfunction 860 201747 N52.9 I reviewed treatment options with the patient. He is currently failing sildenafil therapy. I have recommende d against trying tadalafil given his cardiac history as well as his prescripti on for nitroglyce rin. We reviewed alternativ e treatment options including intraureth ral suppositor ies, vacuum erectile devices, and penile injection therapy. The relative risks and benefits of each option were reviewed. At the end of our discussion , patient would like to proceed with TriMix injections . We will fax an order to [facility] and he will return to office in 2 weeks for teaching and dosing. All of his questions were [phone] Stephanie Webber NP, S [facility] 00 [address] [facility] [address] [place] [address] 12/21/2024 09:23:04 12/21/2024 10:33:19 Erectile dysfunction 241741461 N52.9 Successful test dose of triple mix administer ed to patient today, 15 units (16/10/29). Also went over instructio ns, the technique, and answered questions for the patient. Potential side effects also discussed which includes but not limited to infection, bleeding, bruising, pain at the injection site, adverse drug reaction, scarring/P eyronie's disease with repeated use, and priapism. I discussed with him what to do should these adverse events occur. Teaching instructkana n sheet gave to patient as well.Tripl e Mix refills called into [facility] RTC in 6 months for f/u [id number] Cherry Li APRN [facility] [address] [place] [address] 01/19/2025 17:38:48 01/19/2025 17:59:53 Acute otitis externa of right ear 4346908705 865654 H60.501 Impacted c erumen in right ear 9085799853 579242 H61.21 Acute righ t otitis media 852616406 H66.91 Health Concerns Section Related Observation LastModified by Organization Detai ls LastModified Time None Recorded Concern Status LastModified by Organization Details LastModified Time None Recorded Advance Directives Directive None Recorded Payers Insurance Date Sequence Insurance Name Policy Number Policy Bridges Covered Member ID Bridges Member ID Guarantor Name 01/19/2025 2 [employer] (MEDICARE SUPPLEMENT) Oliverio Contreras [id number] Oliverio Contreras 01/19/2025 1 [place] Oliverio Contreras [id number] Oliverio Contreras 12/07/2024 1 [employer] (HMO) Olvierio Contreras [id number] Oliverio Contreras 12/27/2024 2 [facility]AN J (MEDICARE SUPPLEMENT) Oliverio Contreras Notes Date Note Type Note Provider Name and Address Organization Details Recorded Time 08/03/2023 text/html EaracheReported bypatient.Location:[facility] Quality:aching Severity:no change; continuous Duration:symptoms began 3 days ago Timing:sudden Context:no sick contacts; no recent swimming/water in ear; no exposure to second hand smoke; no head trauma; not grinding teeth; no recent air travel Modifying Factors:does not hurt to lie on, or pull on ear; does not hurt to chew Associated Symptoms:no hearing loss; no discharge from the ears; no nose/sinus problems; no popping noise in the ears; no ringing in the ears; no fever; no swelling; no redness; no itching (pruritus); no ear bleeding; no vertigo;ears feel full Cherry Li APRN [address] , [place], [address], [facility] & [place] 08/03/2023 11:15:00 12/07/2024 text/html 12/07/24 [id number]-sww-male present to clinic as new patient to establish care. Patient has a significant cardiac history and had 2 stents placed in July 2024. He was currently on Plavix, Brilinta, and also has a prescription for nitroglycerin. He was followed by Dr. Christo card with cardiology. States he has never been seen by a urologist before. He denies any significant obstructive or irritative voiding symptoms. He has complaints of erectile dysfunction which has been present for several years. He was previously taking sildenafil 100 mg but notes this has not worked in approximately 1 year. Family history is notable for bladder cancer in his father who was a smoker. He was treated with BCG therapy and ultimately from other causes. DAVID HOSKINS MD [address], [place], [address], [facility] & [place] 12/07/2024 09:05:08 12/21/2024 text/html 12/21/2024 64 yowm RTC for Triple Mix Injection 12/07/24 05-olmh-wiq-male present to clinic as new patient to establish care. Patient has a significant cardiac history and had 2 stents placed in July 2024. He was currently on Plavix, Brilinta, and also has a prescription for nitroglycerin. He was followed by Dr. Christo card with cardiology. States he has never been seen by a urologist before. He denies any significant obstructive or irritative voiding symptoms. He has complaints of erectile dysfunction which has been present for several years. He was previously taking sildenafil 100 mg but notes this has not worked in approximately 1 year. Family history is notable for bladder cancer in his father who was a smoker. He was treated with BCG therapy and ultimately from other causes. Stephanie Webber NP, S [address], [place], [address], [facility] & [place] 12/21/2024 10:47:07 01/19/2025 text/html EaracheReported bypatient.Location:[facility] Quality:aching; fullness Severity:worsening Duration:symptoms began 2 days ago Timing:worse Context:no sick contacts; no recent swimming/water in ear; no exposure to second hand smoke; no head trauma; not grinding teeth; no recent air travel Modifying Factors:does not hurt to lie on, or pull on ear; does not hurt to chew Associated Symptoms:no hearing loss; no discharge from the ears; no nose/sinus problems; no popping noise in the ears; no ringing in the ears; no fever; no swelling; no redness; no itching (pruritus); no ear bleeding; no vertigo;ears feel full Cherry Li APRN [address] , [place], [address], [facility] - [facility] & [place] 01/19/2025 18:01:17
[2025-04-12 08:09] LABS: Blood Urea Nitrogen 13 mg/dl (9-20); Creatinine,Serum 0.60 mg/dl (0.66-1.25); Estimated Glomerular Filt Rate 135 ml/min (>60); GFR (African American) 164 ML/MIN (>60)
== END 2025-04-12 23:59 | disposition home or self-care (01) ==
LOC: LAB 07:38
PROVIDERS: PCP Internal Medicine Adolescent Medicine; Visit Provider Internal Medicine Adolescent Medicine
DX: R07.89 Other chest pain (principal); R09.89 Other specified symptoms and signs involving the circulatory and respiratory systems
CPT/HCPCS: 36415; 82565; 84520

== ENCOUNTER 2025-04-13 07:34 | Outpatient (CLI) | payer MEDICARE, SELFPAY ==
--- NOTE | 2025-04-13 07:37 | CT_ITS ---
FINAL REPORT TECHNIQUE: Prior to and following the administration of intravenous contrast, axial images through the chest were performed by computed tomography. Coronal and sagittal reconstructed images were obtained and reviewed. This study was performed with techniques to keep radiation doses as low as reasonably achievable, (ALARA). Individualized dose reduction techniques using automated exposure control or adjustment of mA and/or kV according to the patient's size were employed. CLINICAL HISTORY: RT-SIDE CHEST WALL PAIN COMPARISON: None FINDINGS: There is no axillary adenopathy. There is no hilar or mediastinal adenopathy. The heart size is normal. There is no pericardial or pleural effusion. No rib lesion or chest wall mass is seen. Limited images of the upper abdomen are unremarkable. No suspicious infiltrate or nodule identified. IMPRESSION: No acute process. No rib lesion or chest wall mass is seen. Reviewed, Interpreted and Dictated by Skye Cao MD Transcribed by Laisha Aguirre Authenticated and [facility]
--- OUTSIDE RECORDS SUMMARY | 2025-04-13 07:37 | XMS_ITS | Clinical Summary ---
Author Organization [facility] Address [address] [place] [address] Care Team Providers Care Hob Grinder Name Role Phone Fabián Burgess MD Primary Care Provider [phone] Family History Medical History Relation Name Comments [...] 2004 Sigmoidoscopy 2004 [facility]-Colorectal Cancer Screening 2004 [id number] Vaccine ( season) 2024 03/28/2022, 08/22/2021, 12/03/2020 [...] complete this topic Insurance REBECCA Care Teams Hob Grinder Relationship Specialty Start Date End Date Fabián Burgess MD [address] [place] [id number] [facility] - General 02/07/21
[2025-04-13] MEDS: IOPAMIDOL-370 (76%);100ML BOTTLE 75 ML IV (08:04)
[2025-04-13] MEDS: SODIUM CHLORIDE 0.9% 10ML SYR (RAD ONLY) 10 ML IV (08:04)
== END 2025-04-13 23:59 | disposition home or self-care (01) ==
LOC: RAD 07:35
PROVIDERS: PCP Internal Medicine Adolescent Medicine; Visit Provider Internal Medicine Adolescent Medicine
DX: R07.89 Other chest pain (principal); R09.89 Other specified symptoms and signs involving the circulatory and respiratory systems
CPT/HCPCS: 71270; Q9967